=== PATIENT | female | born 1950 | race Caucasian/White ===

== ENCOUNTER → 2017-09-21 | Outpatient (CLI) | payer OTHER, MEDICARE ==
[~2017-09-21] MED LIST: ACTOS15 MG PO; ADULT LOW DOSE81 MG PO; ARIXTRA; ASPIR 8181 MG PO; ASPIRIN325; BENADRYL25 MG; BISACODYL SUPP10 MG; CIPROFLOXACIN500 M3 OR; HUMALOG100 UNIT/1 SUBQ; HYDROCHLOROTHIA25 M1 PO; JARDIANCE25 MG PO; LEVAQUIN 500 M500 M1 PO; LEVEMIR SC; LIPITOR 20 MG T20 M1 PO; LISINOPRIL20 MG PO; LISINOPRIL40 MG PO; MECLIZINE HCL12.5 MG; METAMUCIL283 GM; METFORMIN HCL500 MG PO; MOM; MONISTAT 745 GM VG; NORCO 5-325 TA1 EACH PO; NOVALOG INSULIN SUBQ; NOVOLIN 70100 UNIT/5 SQ; NOVOLOG100 UNIT/1 SUBQ; OMEPRAZOLE40 MG PO; OXYIR5 MG; PERCOCET 5-3251 EACH; PREDNISONE 10 M10 M1 PO; PROMETHAZINE/C118 ML PO; REGLAN 10 MG TA10 MG PO; TOUJEO SOL300 UNIT/1 SUBQ; TRULICITY0.75 MG/0. SUBQ; TRULICITY1.5 MG/0.5 SUBQ; VENTOLIN HFA 1818 GM INH; VITAMIN D1000 UNI1 PO; ZOCOR 20 MG TAB20 M1 PO
[2017-09-22 02:08] LABS: GLYCOHEMOGLOBIN (HGB A1C) 12.9 % (4.8-5.6)
== END ==
LOC: M.LAB 10:17
PROVIDERS: Internal Medicine
DX: I10 Essential (primary) hypertension (principal); E11.65 Type 2 diabetes mellitus with hyperglycemia; E11.8 Type 2 diabetes mellitus with unspecified complications; E78.5 Hyperlipidemia, unspecified; Z79.4 Long term (current) use of insulin

== ENCOUNTER → 2018-01-08 | Outpatient (CLI) | payer OTHER, MEDICARE | LOC: M.RAD 13:36 | DX: R05 Cough (principal) ==

== ENCOUNTER → 2018-01-18 | Outpatient (CLI) | payer OTHER, MEDICARE | LOC: M.CT 07:15 | DX: I51.7 Cardiomegaly (principal); I25.10 Atherosclerotic heart disease of native coronary artery without angina pectoris; I10 Essential (primary) hypertension; R94.5 Abnormal results of liver function studies; J98.11 Atelectasis; M47.894 Other spondylosis, thoracic region; M41.84 Other forms of scoliosis, thoracic region; E11.8 Type 2 diabetes mellitus with unspecified complications; E78.5 Hyperlipidemia, unspecified; Z79.4 Long term (current) use of insulin ==

== ENCOUNTER → 2018-01-20 | Outpatient (CLI) | payer OTHER, MEDICARE ==
[2018-01-20 15:12] LABS: CREATININE 1.1 mg/dL (0.6-1.3)
== END ==
LOC: M.LAB 14:41
PROVIDERS: Internal Medicine
DX: E11.9 Type 2 diabetes mellitus without complications (principal); I10 Essential (primary) hypertension; E78.5 Hyperlipidemia, unspecified

== ENCOUNTER → 2018-03-12 | Outpatient (CLI) | payer OTHER, MEDICARE ==
[2018-03-12 17:08] LABS: ABSOLUTE BASOPHILS 0.1 thou/uL (0.0-0.2); ABSOLUTE EOSINOPHILS 0.2 thou/uL (0.0-0.7); ABSOLUTE LYMPHOCYTES 1.6 thou/uL (0.8-5.3); ABSOLUTE MONOCYTES 0.8 thou/uL (0.0-1.2); BASOPHILS 0.7 %; EOSINOPHILS 1.5 %; HEMATOCRIT 42.2 % (37.0-47.0); HEMOGLOBIN 13.8 gm/dL (12.0-15.0); LYMPHOCYTES 11.1 %; MCH 29.1 pg (26.0-34.0); MCHC 32.8 g/dL (28.0-37.0); MCV 88.7 fL (80.0-100.0); MONOCYTES 5.4 %; MPV 9.9 fl. (7.2-11.1); NUCLEATED RBCS 0 /100WBC; PLATELET COUNT* 191 thou/uL (150-400); POLYS 81.3 %; RBC 4.75 mil/uL (4.20-5.00); RDW-CV 13.6 % (10.5-14.5); WBC 14.7 thou/uL (4.0-11.0)
[2018-03-12 17:21] LABS: ALBUMIN 2.8 g/dL (3.4-5.0); ALKALINE PHOSPHATASE 224 U/L (46-116); ANION GAP 10 mmol/L (7-16); BUN 28 mg/dL (7-18); CALCIUM 9.3 mg/dL (8.5-10.1); CHLORIDE 103 mmol/L (98-107); CHOLESTEROL 182 mg/dL (<200); CO2 26 mmol/L (21-32); CREATININE 1.4 mg/dL (0.6-1.3); DIRECT BILIRUBIN 3.3 mg/dL (<0.1-0.3); GLUCOSE 309 mg/dL (70-99); HDL CHOLESTEROL 11 mg/dL (>40); LDL CHOLESTEROL 121 mg/dL (<100); MAGNESIUM 2.2 mg/dL (1.8-2.4); PHOSPHORUS* 3.1 mg/dL (2.5-4.9); SGOT 166 U/L (15-37); SGPT 192 U/L (30-65); SODIUM 139 mmol/L (136-145); TC:HDL 16.5 Ratio (Not establshd); TOTAL BILIRUBIN 4.4 mg/dL (<0.1-1.0); TOTAL PROTEIN 7.2 g/dL (6.4-8.2); TRIGLYCERIDE 250 mg/dL (<150); VLDL 50 mg/dL (<40)
[2018-03-12 17:27] LABS: SERUM ASSESSMENT Clear
[2018-03-12 18:16] LABS: ESR (SEDRATE) 74 mm/hr (0-30)
[2018-03-12 23:07] LABS: URINE BLOOD TRACE (Negative); URINE CLARITY CLEAR; URINE COLOR YELLOW; URINE GLUCOSE-RANDOM 3+ (Negative); URINE KETONES 1+ (Negative); URINE LEUKOCYTES NEGATIVE (Negative); URINE NITRITE NEGATIVE (Negative); URINE PROTEIN TRACE (Negative); URINE SPECIFIC GRAVITY <= 1.005 (1.005-1.030)
[2018-03-12 23:10] LABS: URINE BILIRUBIN 1+ (Negative)
[2018-03-12 23:11] LABS: ICTOTEST (BILI CONFIRMATORY) Positive (Negative)
[2018-03-13 23:07] LABS: T3 UPTAKE 27 % (24-39)
== END ==
LOC: M.LAB 16:11
PROVIDERS: Internal Medicine
DX: E11.65 Type 2 diabetes mellitus with hyperglycemia (principal); E11.42 Type 2 diabetes mellitus with diabetic polyneuropathy; E11.3213 Type 2 diabetes mellitus with mild nonproliferative diabetic retinopathy with macular edema, bilateral; I10 Essential (primary) hypertension; E78.5 Hyperlipidemia, unspecified; F32.9 Major depressive disorder, single episode, unspecified; R07.9 Chest pain, unspecified; Z79.4 Long term (current) use of insulin; Z79.899 Other long term (current) drug therapy

== ENCOUNTER → 2018-03-15 | Outpatient (CLI) | payer OTHER, MEDICARE ==
[2018-03-15 14:56] LABS: ALBUMIN 2.8 g/dL (3.4-5.0); CALCIUM 9.2 mg/dL (8.5-10.1); CREATININE 0.9 mg/dL (0.6-1.3); POTASSIUM 3.9 mmol/L (3.5-5.1); TOTAL BILIRUBIN 1.5 mg/dL (<0.1-1.0); TOTAL PROTEIN 7.5 g/dL (6.4-8.2)
[2018-03-15 15:33] LABS: PROTIME 9.5 Seconds (9.20-11.50)
[2018-03-15 15:35] LABS: ABSOLUTE BASOPHILS 0.1 thou/uL (0.0-0.2); ABSOLUTE EOSINOPHILS 0.3 thou/uL (0.0-0.7); ABSOLUTE LYMPHOCYTES 3.1 thou/uL (0.8-5.3); ABSOLUTE NEUTROPHILS 7.2 thou/uL (1.6-8.1); BASOPHILS 1.1 %; EOSINOPHILS 2.6 %; HEMATOCRIT 43.5 % (37.0-47.0); HEMOGLOBIN 14.1 gm/dL (12.0-15.0); LYMPHOCYTES 26.4 %; MCH 28.8 pg (26.0-34.0); MCHC 32.5 g/dL (28.0-37.0); MCV 88.5 fL (80.0-100.0); MONOCYTES 8.5 %; MPV 9.8 fl. (7.2-11.1); NUCLEATED RBCS 0 /100WBC; PLATELET COUNT* 239 thou/uL (150-400); POLYS 61.4 %; RBC 4.92 mil/uL (4.20-5.00); RDW-CV 13.5 % (10.5-14.5); WBC 11.7 thou/uL (4.0-11.0)
== END ==
LOC: M.CT 11:00
PROVIDERS: Internal Medicine
DX: K42.9 Umbilical hernia without obstruction or gangrene (principal); K76.0 Fatty (change of) liver, not elsewhere classified; I25.10 Atherosclerotic heart disease of native coronary artery without angina pectoris; J98.11 Atelectasis

== ENCOUNTER → 2018-03-19 | Outpatient (CLI) | payer OTHER, MEDICARE ==
[2018-03-19 15:57] LABS: HEMATOCRIT 43.9 % (37.0-47.0); HEMOGLOBIN 14.1 gm/dL (12.0-15.0); MCH 28.9 pg (26.0-34.0); MCHC 32.1 g/dL (28.0-37.0); MCV 89.8 fL (80.0-100.0); MPV 9.1 fl. (7.2-11.1); NUCLEATED RBCS 0 /100WBC; PLATELET COUNT* 333 thou/uL (150-400); RBC 4.89 mil/uL (4.20-5.00); RDW-CV 13.9 % (10.5-14.5); WBC 11.9 thou/uL (4.0-11.0)
[2018-03-19 16:18] LABS: ABSOLUTE EOSINOPHILS 0.1 thou/uL (0.0-0.7); ABSOLUTE LYMPHOCYTES 3.6 thou/uL (0.8-5.3); ABSOLUTE MONOCYTES 0.5 thou/uL (0.0-1.2); ABSOLUTE NEUTROPHILS 7.7 thou/uL (1.6-8.1); ATYPICAL LYMPHS 2 %
[2018-03-19 16:19] LABS: ALBUMIN 3.1 g/dL (3.4-5.0); DIRECT BILIRUBIN 0.4 mg/dL (<0.1-0.3); PLATELET ESTIMATE ADEQUATE; TOTAL BILIRUBIN 0.9 mg/dL (<0.1-1.0); TOTAL PROTEIN 7.6 g/dL (6.4-8.2)
[2018-03-19 16:56] LABS: ESR (SEDRATE) 50 mm/hr (0-30)
[2018-03-20 06:06] LABS: HEPATITIS B SURFACE AG Negative (Negative)
== END ==
LOC: M.LAB 15:37
PROVIDERS: Internal Medicine
DX: E11.42 Type 2 diabetes mellitus with diabetic polyneuropathy (principal); I10 Essential (primary) hypertension; E88.81 Metabolic syndrome and other insulin resistance; J06.9 Acute upper respiratory infection, unspecified; R17 Unspecified jaundice; R10.9 Unspecified abdominal pain; Z79.4 Long term (current) use of insulin; Z79.899 Other long term (current) drug therapy

== ENCOUNTER → 2018-03-28 | Outpatient (CLI) | payer OTHER, MEDICARE | LOC: M.ULTRA 07:17 → M.MRI 08:30 | DX: N28.1 Cyst of kidney, acquired (principal); K44.9 Diaphragmatic hernia without obstruction or gangrene; R79.89 Other specified abnormal findings of blood chemistry; R17 Unspecified jaundice; E11.9 Type 2 diabetes mellitus without complications; Z96.651 Presence of right artificial knee joint; Z88.6 Allergy status to analgesic agent ==

== ENCOUNTER 2018-04-05 11:31 | Observation (INO) | payer OTHER, MEDICARE ==
[~2018-04-05] VITALS: Ht 157.5 cm; Wt 93.4 kg
--- NOTE | ~2018-04-05 | H ---
[address] [address] HISTORY AND PHYSICAL Name: MIA DE LEON Room: [address] Avelina Shaw#: [id number] Admission: 04/05/18 Attend Phys: Keven Gordon DO Discharge: 04/06/18 Date of : 52 Report #: [id number] THIS REPORT FOR: //name// Please refer to the History and Physical performed in the physician's office. By: 1342Medical Records Staff OMEGA /ZENIA
[~2018-04-05 11:31] MED LIST changes: -REGLAN 10 MG TA10 MG PO
[2018-04-05 13:21] LABS: HEMATOCRIT 41.3 % (37.0-47.0); HEMOGLOBIN 13.5 gm/dL (12.0-15.0); MCH 29.1 pg (26.0-34.0); MCHC 32.8 g/dL (28.0-37.0); MCV 88.7 fL (80.0-100.0); MPV 9.2 fl. (7.2-11.1); RBC 4.65 mil/uL (4.20-5.00); RDW-CV 13.5 % (10.5-14.5); WBC 10.1 thou/uL (4.0-11.0)
[2018-04-05 13:29] LABS: CALCIUM 8.4 mg/dL (8.5-10.1)
[2018-04-05 13:31] LABS: APTT 27.4 Seconds (25.0-31.3)
[2018-04-05 13:35] LABS: ALBUMIN 3.2 g/dL (3.4-5.0); TOTAL BILIRUBIN 0.5 mg/dL (<0.1-1.0); TOTAL PROTEIN 7.1 g/dL (6.4-8.2)
--- NOTE | 2018-04-05 15:19 | EKG ---
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 04/05/18 1518 1210 1210 Gallito Bentley MD, [facility] /EPI
[2018-04-05 15:54] VITALS: BP 192/78
[2018-04-05 20:30] VITALS: BP 169/74
[2018-04-06 04:24] VITALS: BP 143/65
[2018-04-06 04:33] LABS: HEMATOCRIT 40.4 % (37.0-47.0); MCH 28.6 pg (26.0-34.0); MCHC 32.2 g/dL (28.0-37.0); MCV 89.1 fL (80.0-100.0); MPV 9.4 fl. (7.2-11.1); NUCLEATED RBCS 0 /100WBC; PLATELET COUNT* 223 thou/uL (150-400); RBC 4.54 mil/uL (4.20-5.00); RDW-CV 13.4 % (10.5-14.5); WBC 15.5 thou/uL (4.0-11.0)
[2018-04-06 04:42] LABS: CALCIUM 7.9 mg/dL (8.5-10.1); CREATININE 1.2 mg/dL (0.6-1.3); POTASSIUM 4.9 mmol/L (3.5-5.1)
[2018-04-06 07:24] LABS: ABSOLUTE LYMPHOCYTES 1.9 thou/uL (0.8-5.3); ABSOLUTE MONOCYTES 0.6 thou/uL (0.0-1.2); METAMYELOCYTES 1 %; PLATELET ESTIMATE ADEQUATE
[2018-04-06 07:50] VITALS: BP 130/53
[2018-04-06] MEDS ORDERED: REGLAN 10 MG TA10 MG PO (14:17)
[2018-04-06 14:42] VITALS: BP 130/53
== END 2018-04-06 15:15 | disposition home or self-care (01) ==
LOC: M.SUR 11:31 → M.ORTHSURG 15:22 → M.TBA 15:22 → M.ORTHSURG 15:34
PROVIDERS: ADMIT Internal Medicine Gastroenterology
DX: K80.50 Calculus of bile duct without cholangitis or cholecystitis without obstruction (principal); I10 Essential (primary) hypertension; R10.13 Epigastric pain; E11.65 Type 2 diabetes mellitus with hyperglycemia; K21.0 Gastro-esophageal reflux disease with esophagitis; E78.5 Hyperlipidemia, unspecified; R93.2 Abnormal findings on diagnostic imaging of liver and biliary tract; R74.8 Abnormal levels of other serum enzymes; Z98.890 Other specified postprocedural states; Z79.4 Long term (current) use of insulin; Z90.710 Acquired absence of both cervix and uterus

== ENCOUNTER → 2018-05-02 | Outpatient (CLI) | payer OTHER, MEDICARE ==
[~2018-05-02] MED LIST changes: +REGLAN 10 MG TA10 MG PO
[2018-05-02 07:54] LABS: ABSOLUTE BASOPHILS 0.1 thou/uL (0.0-0.2); ABSOLUTE EOSINOPHILS 0.3 thou/uL (0.0-0.7); ABSOLUTE LYMPHOCYTES 2.8 thou/uL (0.8-5.3); ABSOLUTE MONOCYTES 0.9 thou/uL (0.0-1.2); BASOPHILS 1.3 %; EOSINOPHILS 2.7 %; HEMATOCRIT 39.9 % (37.0-47.0); HEMOGLOBIN 13.2 gm/dL (12.0-15.0); LYMPHOCYTES 27.7 %; MCHC 32.9 g/dL (28.0-37.0); MONOCYTES 8.9 %; MPV 9.5 fl. (7.2-11.1); NUCLEATED RBCS 0 /100WBC; PLATELET COUNT* 258 thou/uL (150-400); POLYS 59.4 %; RBC 4.54 mil/uL (4.20-5.00); RDW-CV 13.7 % (10.5-14.5); WBC 10.1 thou/uL (4.0-11.0)
[2018-05-02 08:05] LABS: ALBUMIN 3.2 g/dL (3.4-5.0); POTASSIUM 4.5 mmol/L (3.5-5.1); TOTAL BILIRUBIN 0.5 mg/dL (<0.1-1.0); TOTAL PROTEIN 7.3 g/dL (6.4-8.2)
== END ==
LOC: M.LAB 07:18
PROVIDERS: Internal Medicine Gastroenterology
DX: K20.9 Esophagitis, unspecified (principal); K80.50 Calculus of bile duct without cholangitis or cholecystitis without obstruction; E11.9 Type 2 diabetes mellitus without complications

== ENCOUNTER → 2018-09-25 | Outpatient (CLI) | payer OTHER, MEDICARE ==
[2018-09-25 07:25] LABS: ABSOLUTE BASOPHILS 0.1 thou/uL (0.0-0.2); ABSOLUTE EOSINOPHILS 0.3 thou/uL (0.0-0.7); ABSOLUTE LYMPHOCYTES 3.2 thou/uL (0.8-5.3); ABSOLUTE MONOCYTES 0.9 thou/uL (0.0-1.2); ABSOLUTE NEUTROPHILS 8.3 thou/uL (1.6-8.1); BASOPHILS 1.1 %; EOSINOPHILS 2.7 %; HEMATOCRIT 42.9 % (37.0-47.0); HEMOGLOBIN 13.9 gm/dL (12.0-15.0); MCH 28.6 pg (26.0-34.0); MCHC 32.5 g/dL (28.0-37.0); MCV 88.2 fL (80.0-100.0); MONOCYTES 6.9 %; NUCLEATED RBCS 0 /100WBC; PLATELET COUNT* 247 thou/uL (150-400); POLYS 64.3 %; RBC 4.86 mil/uL (4.20-5.00); RDW-CV 13.9 % (10.5-14.5); WBC 12.8 thou/uL (4.0-11.0)
[2018-09-25 07:35] LABS: ALBUMIN 3.4 g/dL (3.4-5.0); ALKALINE PHOSPHATASE 127 U/L (46-116); ANION GAP 8 mmol/L (7-16); BUN 29 mg/dL (7-18); CHLORIDE 101 mmol/L (98-107); CHOLESTEROL 239 mg/dL (<200); CO2 28 mmol/L (21-32); CREATININE 1.4 mg/dL (0.6-1.3); DIRECT BILIRUBIN 0.1 mg/dL (<0.1-0.3); GLUCOSE 297 mg/dL (70-99); HDL CHOLESTEROL 42 mg/dL (>40); LDL CHOLESTEROL 141 mg/dL (<100); POTASSIUM 4.2 mmol/L (3.5-5.1); SGOT 15 U/L (15-37); SGPT 18 U/L (30-65); SODIUM 137 mmol/L (136-145); TC:HDL 5.7 Ratio (Not establshd); TOTAL BILIRUBIN 0.5 mg/dL (<0.1-1.0); TOTAL PROTEIN 7.5 g/dL (6.4-8.2); TRIGLYCERIDE 284 mg/dL (<150); VLDL 57 mg/dL (<40)
[2018-09-25 07:43] LABS: SERUM ASSESSMENT Clear
[2018-09-25 17:08] LABS: GLYCOHEMOGLOBIN (HGB A1C) 10.1 % (4.8-5.6)
== END ==
LOC: M.LAB 07:05
PROVIDERS: Registered Nurse Diabetes Educator
DX: E11.3213 Type 2 diabetes mellitus with mild nonproliferative diabetic retinopathy with macular edema, bilateral (principal); I10 Essential (primary) hypertension; R53.83 Other fatigue; R06.83 Snoring; Z79.4 Long term (current) use of insulin; Z68.38 Body mass index [BMI] 38.0-38.9, adult

== ENCOUNTER → 2018-10-29 | Outpatient (CLI) | payer OTHER, MEDICARE | LOC: M.LAB 07:14 | DX: E11.42 Type 2 diabetes mellitus with diabetic polyneuropathy (principal); Z79.4 Long term (current) use of insulin ==

== ENCOUNTER → 2018-11-09 | Outpatient (CLI) | payer OTHER, MEDICARE | LOC: M.RAD 12:44 | DX: R05 Cough (principal); R50.9 Fever, unspecified; Z88.8 Allergy status to other drugs, medicaments and biological substances; Z88.5 Allergy status to narcotic agent; Z90.49 Acquired absence of other specified parts of digestive tract ==

== ENCOUNTER → 2018-11-30 | Outpatient (CLI) | payer OTHER, MEDICARE ==
--- NOTE | 2018-12-03 20:50 | SLEEP ---
[address] [address] SLEEP STUDY REPORT Name: MIA DE LEON Room: [facility].#: [id number] Admission: 11/30/18 Attend Phys: Marilyn Rojas Discharge: Date of : 52 Report #: [id number] THIS REPORT FOR: //name// CC: Tigre Rojas This study has been reviewed in its entirety by a board certified sleep specialist DATE OF SERVICE: 11/30/2018 ATTENDING PERSON: Marilyn Rojas NP The patient is 68 years old who weighs 211 pounds with a BMI of 41.2. The patient's Baxter score was 14. The patient underwent split night study performed at [facility]. During the night study, the patient spent 473 minutes in bed and slept for 184 minutes with a low sleep efficiency of 39%. Sleep latency was 12.6 minutes with a REM latency of 446 minutes. Overall, sleep architecture showed normal stage 1 and stage 2 sleep, normal N3 and slightly reduced REM sleep. During the initial diagnostic portion of the study, the patient slept for 93 minutes. During that time, the patient had 14 obstructive apneas, no mixed apneas and 9 central apneas. The patient also had 25 hypopneas. The patient's apnea hypopnea index was 30.8 per hour with a REM index, which was absent due to lack of REM sleep during the diagnostic portion. Supine index 30 per hour. EKG monitoring revealed an average heart rate of 67 beats per minute. No sustained arrhythmias observed. PLMs were seen at index of 52 per hour and 9.6 per hour caused EEG arousals. Nocturnal oximetry study revealed an average oxygen saturation of 94%, the lowest of 81%. 8.5 minutes were spent in oxygen saturation less than 89%. The patient met the criteria for CPAP initiation. It was started at 5 cm water and titrated up to 9 cm water; however, there were few central apneas. As a result, the patient was switched to BiPAP and had a final BiPAP pressure of 15/11. The patient slept for 64 minutes. The patient had supine as well as REM sleep. The patient's AHI was 1.9 per hour and oxygen saturation remained above 90%. IMPRESSION: [place] [address] SLEEP STUDY REPORT Name: MIA DE LEON [id number] Admission: 11/30/18 Attend Phys: Marilyn WATSON Rojas Discharge: Date of : 52 Report #: [id number] 1. Severe sleep apnea hypopnea syndrome at an AHI of 30.8 per hour. 2. Nocturnal hypoxia secondary to obstructive sleep apnea, but resolved with BiPAP. 3. Severe periodic limb movements. RECOMMENDATIONS: 1. BiPAP at a pressure of 15/11 completely eliminated the patient's sleep apnea and should be used on a nightly basis. 2. Follow up in 4-6 weeks to assess compliance with BiPAP and to document clinical improvement. 3. Weight loss is advised. 4. Avoid BOND MANAGER depressants. 5. Cautioned regarding driving until symptoms of sleep apnea resolves with the use of BiPAP. 6. The patient should also be further evaluated for symptoms of restless legs during the day. <ELECTRONICALLY SIGNED> By: Bin Garrett MD 12/03/182049 1501 1835Awillits Terrence Garrett MD /nt
== END ==
LOC: M.SLEEPLAB 11-03 20:00
DX: G47.33 Obstructive sleep apnea (adult) (pediatric) (principal); G47.34 Idiopathic sleep related nonobstructive alveolar hypoventilation; G47.61 Periodic limb movement disorder; E11.3213 Type 2 diabetes mellitus with mild nonproliferative diabetic retinopathy with macular edema, bilateral; R06.83 Snoring; R53.83 Other fatigue; Z79.4 Long term (current) use of insulin; Z88.8 Allergy status to other drugs, medicaments and biological substances; Z68.41 Body mass index [BMI] 40.0-44.9, adult

== ENCOUNTER → 2019-02-15 | Outpatient (CLI) | payer OTHER, MEDICARE ==
[2019-02-15 07:45] LABS: ABSOLUTE BASOPHILS 0.1 thou/uL (0.0-0.2); ABSOLUTE EOSINOPHILS 0.3 thou/uL (0.0-0.7); ABSOLUTE LYMPHOCYTES 3.2 thou/uL (0.8-5.3); ABSOLUTE MONOCYTES 0.9 thou/uL (0.0-1.2); ABSOLUTE NEUTROPHILS 5.8 thou/uL (1.6-8.1); BASOPHILS 0.9 %; EOSINOPHILS 2.8 %; HEMATOCRIT 41.5 % (37.0-47.0); HEMOGLOBIN 13.8 gm/dL (12.0-15.0); LYMPHOCYTES 31.1 %; MCH 29.5 pg (26.0-34.0); MCHC 33.2 g/dL (28.0-37.0); MCV 88.7 fL (80.0-100.0); MONOCYTES 8.5 %; MPV 9.2 fl. (7.2-11.1); NUCLEATED RBCS 0 /100WBC; PLATELET COUNT* 238 thou/uL (150-400); POLYS 56.7 %; RBC 4.68 mil/uL (4.20-5.00); RDW-CV 13.7 % (10.5-14.5); WBC 10.3 thou/uL (4.0-11.0)
[2019-02-15 08:03] LABS: ALBUMIN 3.3 g/dL (3.4-5.0); CALCIUM 9.2 mg/dL (8.5-10.1); DIRECT BILIRUBIN 0.1 mg/dL (<0.1-0.3); POTASSIUM 4.1 mmol/L (3.5-5.1); TOTAL BILIRUBIN 0.6 mg/dL (<0.1-1.0); TOTAL PROTEIN 7.2 g/dL (6.4-8.2)
[2019-02-16 09:07] LABS: GLYCOHEMOGLOBIN (HGB A1C) 9.3 % (4.8-5.6)
== END ==
LOC: M.LAB 07:17
PROVIDERS: Registered Nurse Diabetes Educator
DX: E11.42 Type 2 diabetes mellitus with diabetic polyneuropathy (principal); I10 Essential (primary) hypertension; Z79.899 Other long term (current) drug therapy; Z68.41 Body mass index [BMI] 40.0-44.9, adult

== ENCOUNTER → 2019-04-17 | Outpatient (CLI) | payer OTHER, MEDICARE | LOC: M.RAD 15:46 | DX: M47.816 Spondylosis without myelopathy or radiculopathy, lumbar region (principal); M12.88 Other specific arthropathies, not elsewhere classified, other specified site ==

== ENCOUNTER 2019-04-21 00:40 | Emergency (ER) | payer OTHER, MEDICARE ==
[~2019-04-21] VITALS: Ht 157.5 cm; Wt 99.8 kg
[2019-04-21 00:45] VITALS: BP 122/92
== END 2019-04-21 01:49 | disposition home or self-care (01) ==
LOC: M.ERS 00:40
DX: S80.01XA Contusion of right knee, initial encounter (principal); E11.9 Type 2 diabetes mellitus without complications; Z90.710 Acquired absence of both cervix and uterus; Z96.653 Presence of artificial knee joint, bilateral; Z79.4 Long term (current) use of insulin; Z88.5 Allergy status to narcotic agent; W01.0XXA Fall on same level from slipping, tripping and stumbling without subsequent striking against object, initial encounter; Y93.89 Activity, other specified; Y92.89 Other specified places as the place of occurrence of the external cause; Y99.8 Other external cause status

== ENCOUNTER → 2019-05-06 | Outpatient (CLI) | payer OTHER, MEDICARE ==
[2019-05-06 17:11] LABS: CALCIUM 9.3 mg/dL (8.5-10.1); POTASSIUM 4.4 mmol/L (3.5-5.1)
== END ==
LOC: M.LAB 16:41
PROVIDERS: Internal Medicine Cardiovascular Disease
DX: I11.0 Hypertensive heart disease with heart failure (principal); I50.33 Acute on chronic diastolic (congestive) heart failure

== ENCOUNTER 2019-05-10 21:22 | Inpatient (IN) | payer OTHER, MEDICARE ==
[~2019-05-10] VITALS: Ht 157.5 cm; Wt 99.3 kg
[2019-05-10 21:37] VITALS: BP 171/66
[2019-05-10 21:39] LABS: ABSOLUTE BASOPHILS 0.1 thou/uL (0.0-0.2); ABSOLUTE EOSINOPHILS 0.3 thou/uL (0.0-0.7); ABSOLUTE LYMPHOCYTES 3.4 thou/uL (0.8-5.3); ABSOLUTE MONOCYTES 1.2 thou/uL (0.0-1.2); ABSOLUTE NEUTROPHILS 9.3 thou/uL (1.6-8.1); BASOPHILS 0.9 %; EOSINOPHILS 2.2 %; HEMATOCRIT 42.3 % (37.0-47.0); LYMPHOCYTES 23.8 %; MCHC 33.1 g/dL (28.0-37.0); MCV 87.5 fL (80.0-100.0); MONOCYTES 8.3 %; MPV 8.9 fl. (7.2-11.1); NUCLEATED RBCS 0 /100WBC; PLATELET COUNT* 266 thou/uL (150-400); POLYS 64.8 %; RBC 4.83 mil/uL (4.20-5.00); RDW-CV 13.6 % (10.5-14.5); WBC 14.4 thou/uL (4.0-11.0)
[2019-05-10] MEDS ORDERED: CRESTOR20 MG PO (21:43)
[2019-05-10] MEDS ORDERED: COZAAR100 MG PO (21:44)
[2019-05-10] MEDS ORDERED: COREG6.25 MG PO (21:45)
[2019-05-10] MEDS ORDERED: MAXZIDE-25 MG1 EACH PO (21:45)
[2019-05-10 21:47] LABS: CALCIUM 9.1 mg/dL (8.5-10.1); CREATININE 1.4 mg/dL (0.6-1.3); POTASSIUM 3.6 mmol/L (3.5-5.1)
[2019-05-10 21:52] LABS: ALBUMIN 3.5 g/dL (3.4-5.0); TOTAL BILIRUBIN 0.7 mg/dL (<0.1-1.0); TOTAL PROTEIN 7.5 g/dL (6.4-8.2)
[2019-05-10 21:56] LABS: APTT 29.1 Seconds (25.0-31.3); PROTIME 9.9 Seconds (9.20-11.50)
[2019-05-11] VITALS (7 sets, daily range): BP systolic 117–158; BP diastolic 52–62
[2019-05-11 00:49] LABS: URINE BILIRUBIN NEGATIVE (Negative); URINE BLOOD TRACE (Negative); URINE CLARITY CLEAR; URINE COLOR YELLOW; URINE GLUCOSE-RANDOM 3+ (Negative); URINE KETONES NEGATIVE (Negative); URINE LEUKOCYTES-REFLEX NEGATIVE (Negative); URINE NITRITE-REFLEX NEGATIVE (Negative); URINE PROTEIN 1+ (Negative); URINE SPECIFIC GRAVITY 1.015 (1.005-1.030); URINE UROBILINOGEN 0.2 E.U./dl (0.2-1.0)
--- NOTE | 2019-05-11 01:56 | NUR ---
PT ADMITTED TO ROOM 2024 AT 0045 FOR ALTERED MENTAL STATUS / HYPOGLYCEMIA. PT ALERT AND ORIENTED X 4. PT GIVEN INSTRUCTION AND DEMONSTRATION ON BED CONTROLS, CALL LIGHT AND ORIENTED TO ROOM. PT INSTRUCTED TO CALL NURSE BEFORE GETTING UP. PT VERBALIZES UNDERSTANDING. CALL LIGHT IN REACH, PT DEMONSTRATES PROPER USE.
[2019-05-11 10:34] LABS: ABSOLUTE BASOPHILS 0.1 thou/uL (0.0-0.2); ABSOLUTE EOSINOPHILS 0.2 thou/uL (0.0-0.7); ABSOLUTE LYMPHOCYTES 2.3 thou/uL (0.8-5.3); ABSOLUTE MONOCYTES 0.7 thou/uL (0.0-1.2); BASOPHILS 0.7 %; EOSINOPHILS 1.8 %; HEMATOCRIT 40.1 % (37.0-47.0); HEMOGLOBIN 13.5 gm/dL (12.0-15.0); LYMPHOCYTES 22.7 %; MCH 29.3 pg (26.0-34.0); MCHC 33.6 g/dL (28.0-37.0); MCV 87.4 fL (80.0-100.0); MONOCYTES 7.3 %; MPV 9.2 fl. (7.2-11.1); NUCLEATED RBCS 0 /100WBC; PLATELET COUNT* 258 thou/uL (150-400); POLYS 67.5 %; RBC 4.59 mil/uL (4.20-5.00); RDW-CV 13.7 % (10.5-14.5); WBC 10.3 thou/uL (4.0-11.0)
[2019-05-11 10:45] LABS: CALCIUM 8.5 mg/dL (8.5-10.1); CREATININE 1.2 mg/dL (0.6-1.3); POTASSIUM 4.2 mmol/L (3.5-5.1)
--- NOTE | 2019-05-11 12:54 | EKG ---
[place] [address] ELECTROCARDIOGRAM REPORT Name: MIA DE LEON Room: [address] ADM IN M.R.#: [id number] Admission: 05/11/19 Attend Phys: Alana Almanzar Discharge: Date of : 52 Report #: [id number] THIS REPORT FOR: //name// [facility] ED Test Date: 2019-05-10 Test Time: 22:15:22 Pat Name: MIA DE LEON Department: Room: 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
--- NOTE | 2019-05-11 14:34 | NUR ---
ASSUMED PT CARE REPORT RECEIVED FROM NURSE. 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 ON RA. LEFT AC NORMAL SALINE INFUSING AT 100 CC PER HOUR. ACCUCHECK EVERY 2 HOURS. NO HYPOGLYCEMIA NOTED. DISCHARGE PLANNING FOR PATIENT PENDING.
[2019-05-11] MEDS ORDERED: ASPIRIN81 M2 PO (14:58)
[2019-05-11] MEDS ORDERED: TOUJEO SOL300 UNIT/1 SUBQ (14:58)
[2019-05-11] MEDS ORDERED: LISINOPRIL20 MG PO (15:18)
--- NOTE | 2019-05-11 15:34 | NUR ---
PATIENT BLOOD SUGAR CHECKED AT 1530 BEFORE DISCHARGE. ACCUCHECK 58. SR MADE AWARE. DISCHARGE HELD TO MONITOR PT BLOOD SUGAR CLOSELY.
--- NOTE | 2019-05-11 19:42 | NUR ---
PT [facility] IS O
[2019-05-12] VITALS: BP 142/63
[2019-05-12 02:06] LABS: GLYCOHEMOGLOBIN (HGB A1C) 8.1 % (4.8-5.6)
[2019-05-12 04:00] VITALS: BP 117/52
[2019-05-12 05:32] LABS: CALCIUM 8.3 mg/dL (8.5-10.1); CREATININE 1.1 mg/dL (0.6-1.3); PHOSPHORUS* 3.9 mg/dL (2.5-4.9); POTASSIUM 4.2 mmol/L (3.5-5.1)
[2019-05-12 06:11] LABS: CHOLESTEROL 111 mg/dL (<200); HDL CHOLESTEROL 42 mg/dL (>40); LDL CHOLESTEROL 39 mg/dL (<100); SERUM ASSESSMENT CLEAR; TC:HDL 2.6 Ratio (Not establshd); TRIGLYCERIDE 152 mg/dL (<150); VLDL 30 mg/dL (<40)
--- NOTE | 2019-05-12 07:53 | NUR ---
PT IS ABLE TO COMMUNICATE HER NEEDS TO STAFF EFFEECTIVELY. 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 ECHO, AND SEVERAL MRI/A SCANS ORDERED; POSSIBLE DISCHARGE AFTER SCANS, ETC. ARE COMPLETED.
[2019-05-12 08:00] VITALS: BP 147/58
[2019-05-12 11:27] VITALS: BP 133/53
[2019-05-12 15:25] VITALS: BP 166/62
--- NOTE | 2019-05-12 17:33 | NUR ---
ASSUMED PT CARE REPORT RECEIVED FROM NURSE. PT IS AOX4, ON RA. SINUS DIANA ON GLOST TILE SHADER. NO COMPLAINT. IV FLUID INFUSING AT 50 CC PER HOUR. IV FLUID WAS THEN STOPPED AFTER HOSPITALIST SAW PT. KJ ROA.HS, BETTER BLOOD SUGAR CONTROL ON LOW DOSE SLIDING SCALE. HEART RATE REMAINS INTHE 50S. DROPPED IN THE 30S ONCE FOR A SHORT MOMENT DURING THIS SHIFT. MRI/MRA OF HEAD PENDING. PT AMBULATES IN HALLWAY ACCOMPANIED BY THIS NURSE X1. CALL LIGHT AT REACH. WILL CONTINUE TO MONITOR PT.
[2019-05-12 20:00] VITALS: BP 161/50
[2019-05-13] VITALS: BP 127/47
--- NOTE | 2019-05-13 00:44 | NUR ---
PT A+OX4. DENIES ANY PAIN OR DISCOMFORT. TRACING SINUS DIANA ON MONITOR. CALL LIGHT IN REACH. HOURLY ROUNDING FOR SAFETY.
[2019-05-13 04:00] VITALS: BP 126/50
[2019-05-13 05:02] LABS: CALCIUM 8.5 mg/dL (8.5-10.1); POTASSIUM 3.8 mmol/L (3.5-5.1)
[2019-05-13 08:00] VITALS: BP 155/53
--- NOTE | 2019-05-13 10:18 | NUR ---
Pt out of room at MRI, will f/u later
[2019-05-13] MEDS ORDERED: CARVEDILOL3.125 MG PO (11:45)
[2019-05-13] MEDS ORDERED: HUMALOG100 UNIT/1 SUBQ (11:45)
--- NOTE | 2019-05-13 11:56 | NUR ---
Pt is A&O. Reside at home alone. Independent, continues to work. Pt has a cpap. No hx of HH or SNF. Goal is home, anticipate dc today pending MRI. No needs.
[2019-05-13 13:03] VITALS: BP 149/54
[2019-05-13 13:18] VITALS: BP 149/54
--- NOTE | 2019-05-13 13:37 | NUR ---
PT PREPARING FOR DISCHARGE TO HOME. PT REPORTS HAS SUPPORTIVE SON AND DTR. PT DEMO UP AD [facility] INDEP AND STABLE TRANSFERS AND GAIT W/O DME SUPPORT. PT VOICES NO CONCERNS REGARDING DISCHARGE BACK TO HOME. WILL DISCHARGE PT ORDERS PER PT REQUEST.
--- NOTE | 2019-05-13 14:38 | NUR ---
PT. DISCHARGED PRIOR TO O.T. EVAL.
--- NOTE | 2019-05-13 14:53 | NUR ---
ASSUMED PT CARE REPORT RECIEVED FROM NURSE. PT IS AOX4, TRACING BRADYCARDIA ON PRESCRIPTIONIST. ON RA. ACCUCHECK AC/HS. NO COMPLAINT. MRI/MRA WAS DONE THIS AM. PT DISCHARGED TO HOME SELF CARE ACCOMPANIED BY RELATIVE AND VOLUNTEER ON WHEELCHAIR. DISCHARGE INSTRUCTIONS GIVEN, DISCHARGE EDUCATION GIVEN TO PT.
== END 2019-05-13 14:00 | disposition home or self-care (01) | DRG 637 ==
LOC: M.ERS 21:22 → M.2W 05-11 00:01 → M.TBA-ER 05-11 00:01 → M.2W 05-11 00:21
PROVIDERS: Family Medicine; Personal Emergency Response Attendant; ADMIT Internal Medicine
DX: E11.649 Type 2 diabetes mellitus with hypoglycemia without coma (principal); G93.41 Metabolic encephalopathy; I50.32 Chronic diastolic (congestive) heart failure; I13.0 Hypertensive heart and chronic kidney disease with heart failure and stage 1 through stage 4 chronic kidney disease, or unspecified chronic kidney disease; G45.9 Transient cerebral ischemic attack, unspecified; E11.36 Type 2 diabetes mellitus with diabetic cataract; E11.43 Type 2 diabetes mellitus with diabetic autonomic (poly)neuropathy; K31.84 Gastroparesis; Z96.659 Presence of unspecified artificial knee joint; E78.5 Hyperlipidemia, unspecified; N18.3 Chronic kidney disease, stage 3 (moderate); E11.22 Type 2 diabetes mellitus with diabetic chronic kidney disease; R00.1 Bradycardia, unspecified; R47.1 Dysarthria and anarthria; Z90.710 Acquired absence of both cervix and uterus; Z98.42 Cataract extraction status, left eye; Z98.41 Cataract extraction status, right eye; Z79.899 Other long term (current) drug therapy; Z79.84 Long term (current) use of oral hypoglycemic drugs; Z79.4 Long term (current) use of insulin; Z88.6 Allergy status to analgesic agent

== ENCOUNTER → 2019-05-24 | Outpatient (CLI) | payer OTHER, MEDICARE ==
[~2019-05-24] MED LIST changes: +ASPIRIN81 M2 PO; +CARVEDILOL3.125 MG PO; +COREG6.25 MG PO; +COZAAR100 MG PO; +CRESTOR20 MG PO; +MAXZIDE-25 MG1 EACH PO
[2019-05-24 10:40] LABS: ABSOLUTE BASOPHILS 0.1 thou/uL (0.0-0.2); ABSOLUTE EOSINOPHILS 0.3 thou/uL (0.0-0.7); ABSOLUTE LYMPHOCYTES 2.5 thou/uL (0.8-5.3); ABSOLUTE MONOCYTES 0.8 thou/uL (0.0-1.2); ABSOLUTE NEUTROPHILS 7.2 thou/uL (1.6-8.1); BASOPHILS 1.1 %; EOSINOPHILS 2.6 %; HEMATOCRIT 41.4 % (37.0-47.0); HEMOGLOBIN 13.7 gm/dL (12.0-15.0); MCH 29.4 pg (26.0-34.0); MCHC 33.2 g/dL (28.0-37.0); MCV 88.5 fL (80.0-100.0); MONOCYTES 7.4 %; NUCLEATED RBCS 0 /100WBC; PLATELET COUNT* 220 thou/uL (150-400); POLYS 65.9 %; RBC 4.68 mil/uL (4.20-5.00); RDW-CV 13.7 % (10.5-14.5); WBC 10.9 thou/uL (4.0-11.0)
[2019-05-24 11:01] LABS: CALCIUM 9.2 mg/dL (8.5-10.1); CREATININE 1.6 mg/dL (0.6-1.3); POTASSIUM 4.5 mmol/L (3.5-5.1)
[2019-05-25 02:06] LABS: GLYCOHEMOGLOBIN (HGB A1C) 8.6 % (4.8-5.6)
== END ==
LOC: M.LAB 10:14
PROVIDERS: Internal Medicine Cardiovascular Disease
DX: Z12.31 Encounter for screening mammogram for malignant neoplasm of breast (principal); E11.42 Type 2 diabetes mellitus with diabetic polyneuropathy; I11.0 Hypertensive heart disease with heart failure; I50.33 Acute on chronic diastolic (congestive) heart failure; Z79.4 Long term (current) use of insulin; Z79.899 Other long term (current) drug therapy

== ENCOUNTER → 2019-06-28 | Outpatient (CLI) | payer OTHER, MEDICARE ==
[2019-06-28 17:48] LABS: CALCIUM 9.1 mg/dL (8.5-10.1); CREATININE 1.4 mg/dL (0.6-1.3)
== END ==
LOC: M.LAB 17:25
PROVIDERS: Internal Medicine Cardiovascular Disease
DX: I11.0 Hypertensive heart disease with heart failure (principal); I50.33 Acute on chronic diastolic (congestive) heart failure

== ENCOUNTER → 2019-09-23 | Outpatient (CLI) | payer OTHER, MEDICARE ==
[2019-09-23 07:27] LABS: ABSOLUTE BASOPHILS 0.2 thou/uL (0.0-0.2); ABSOLUTE EOSINOPHILS 0.4 thou/uL (0.0-0.7); ABSOLUTE MONOCYTES 0.9 thou/uL (0.0-1.2); ABSOLUTE NEUTROPHILS 8.1 thou/uL (1.6-8.1); BASOPHILS 1.1 %; EOSINOPHILS 2.6 %; HEMATOCRIT 39.8 % (37.0-47.0); HEMOGLOBIN 13.2 gm/dL (12.0-15.0); LYMPHOCYTES 29.6 %; MCH 29.7 pg (26.0-34.0); MCHC 33.2 g/dL (28.0-37.0); MCV 89.5 fL (80.0-100.0); MONOCYTES 6.4 %; MPV 9.4 fl. (7.2-11.1); NUCLEATED RBCS 0 /100WBC; PLATELET COUNT* 227 thou/uL (150-400); POLYS 60.3 %; RBC 4.44 mil/uL (4.20-5.00); WBC 13.4 thou/uL (4.0-11.0)
[2019-09-23 07:44] LABS: ALBUMIN 3.3 g/dL (3.4-5.0); ALKALINE PHOSPHATASE 100 U/L (46-116); ANION GAP 8 mmol/L (7-16); BUN 55 mg/dL (7-18); CHLORIDE 100 mmol/L (98-107); CHOLESTEROL 138 mg/dL (<200); CO2 30 mmol/L (21-32); CREATININE 1.4 mg/dL (0.6-1.3); DIRECT BILIRUBIN 0.1 mg/dL (<0.1-0.3); GLUCOSE 227 mg/dL (70-99); HDL CHOLESTEROL 40 mg/dL (>40); LDL CHOLESTEROL 54 mg/dL (<100); NT-PRO BRAIN NAT PEPTIDE 301 pg/mL (<300); POTASSIUM 4.3 mmol/L (3.5-5.1); SGOT 18 U/L (15-37); SGPT 19 U/L (30-65); SODIUM 138 mmol/L (136-145); TC:HDL 3.5 Ratio (Not establshd); TOTAL BILIRUBIN 0.5 mg/dL (<0.1-1.0); TOTAL PROTEIN 7.5 g/dL (6.4-8.2); TRIGLYCERIDE 221 mg/dL (<150); VLDL 44 mg/dL (<40)
[2019-09-23 07:45] LABS: SERUM ASSESSMENT Clear
[2019-09-24 02:06] LABS: GLYCOHEMOGLOBIN (HGB A1C) 12.3 % (4.8-5.6)
== END ==
LOC: M.LAB 02:07
PROVIDERS: Registered Nurse Diabetes Educator
DX: E11.29 Type 2 diabetes mellitus with other diabetic kidney complication (principal); R80.9 Proteinuria, unspecified; E78.5 Hyperlipidemia, unspecified; I50.32 Chronic diastolic (congestive) heart failure; E55.9 Vitamin D deficiency, unspecified; Z79.4 Long term (current) use of insulin; Z79.899 Other long term (current) drug therapy

== ENCOUNTER → 2019-09-26 | Outpatient (CLI) | payer OTHER, MEDICARE | LOC: M.ULTRA 09:02 | DX: K42.9 Umbilical hernia without obstruction or gangrene (principal); K76.0 Fatty (change of) liver, not elsewhere classified; Z90.49 Acquired absence of other specified parts of digestive tract ==

== ENCOUNTER → 2019-12-13 | Outpatient (CLI) | payer OTHER, MEDICARE | LOC: M.RAD 09:30 | DX: R06.02 Shortness of breath (principal); R05 Cough ==

== ENCOUNTER → 2020-02-04 | Outpatient (CLI) | payer OTHER, MEDICARE ==
[2020-02-04 12:55] LABS: ABSOLUTE BASOPHILS 0.1 thou/uL (0.0-0.2); ABSOLUTE EOSINOPHILS 0.3 thou/uL (0.0-0.7); ABSOLUTE NEUTROPHILS 9.1 thou/uL (1.6-8.1); BASOPHILS 0.8 %; EOSINOPHILS 1.9 %; HEMATOCRIT 37.7 % (37.0-47.0); HEMOGLOBIN 12.5 gm/dL (12.0-15.0); LYMPHOCYTES 22.5 %; MCH 29.6 pg (26.0-34.0); MCHC 33.2 g/dL (28.0-37.0); MCV 89.1 fL (80.0-100.0); MONOCYTES 7.8 %; MPV 9.5 fl. (7.2-11.1); NUCLEATED RBCS 0 /100WBC; PLATELET COUNT* 243 thou/uL (150-400); RBC 4.23 mil/uL (4.20-5.00); WBC 13.5 thou/uL (4.0-11.0)
[2020-02-04 13:11] LABS: ALBUMIN 3.1 g/dL (3.4-5.0); ALKALINE PHOSPHATASE 110 U/L (46-116); AMYLASE 45 U/L (25-115); ANION GAP 8 mmol/L (7-16); BUN 40 mg/dL (7-18); CALCIUM 8.6 mg/dL (8.5-10.1); CHLORIDE 105 mmol/L (98-107); CHOLESTEROL 141 mg/dL (<200); CO2 29 mmol/L (21-32); CREATININE 1.9 mg/dL (0.6-1.3); DIRECT BILIRUBIN 0.1 mg/dL (<0.1-0.3); GLUCOSE 111 mg/dL (70-99); HDL CHOLESTEROL 38 mg/dL (>40); LDL CHOLESTEROL 55 mg/dL (<100); LIPASE 87 U/L (73-393); SGOT 17 U/L (15-37); SGPT 18 U/L (30-65); SODIUM 142 mmol/L (136-145); TC:HDL 3.7 Ratio (Not establshd); TOTAL BILIRUBIN 0.6 mg/dL (<0.1-1.0); TOTAL PROTEIN 7.5 g/dL (6.4-8.2); TRIGLYCERIDE 241 mg/dL (<150); VLDL 48 mg/dL (<40)
[2020-02-04 13:12] LABS: SERUM ASSESSMENT Clear
[2020-02-05 02:07] LABS: GLYCOHEMOGLOBIN (HGB A1C) 13.5 % (4.8-5.6)
== END ==
LOC: M.LAB 12:20
PROVIDERS: ATTEND Registered Nurse Diabetes Educator
DX: R82.90 Unspecified abnormal findings in urine (principal)

== ENCOUNTER → 2020-02-06 | Outpatient (CLI) | payer OTHER, MEDICARE | LOC: M.LAB 14:37 | PROVIDERS: ATTEND Registered Nurse Diabetes Educator | DX: R19.7 Diarrhea, unspecified (principal) ==

== ENCOUNTER → 2020-03-09 | Outpatient (CLI) | payer OTHER ==
--- NOTE | 2020-03-09 10:53 | 2DMMODE ---
[place] [address] 2 D/M-MODE ECHOCARDIOGRAM Name: MOISESMIA ANN Room: [facility]#: [id number] Admission: 03/09/20 Attend Phys: Manuel Francois, Discharge: Date of : 52 Date of Service: 03/09/20 1052 Report #: [id number] THIS REPORT FOR: cc: Tigre Watson MD, David L. MD Blick, David R. MD MERGED WITH [facility] ~ APPROVED REPORT Study performed: 03/09/2020 08:58:45 EXAM: Comprehensive 2D, Doppler, and color-flow Echocardiogram BSA: 2.03 HR: 65 bpm BP: 185/90 mmHg Other Information Study Quality: Good Indications Dyspnea 2D Dimensions IVSd: 12.76 (7-11mm) LVOT Diam: 20.38 (18-24mm) LVDd: 41.73 mm PWd: 10.75 (7-11mm) Ascending Ao: 29.60 (22-36mm) LVDs: 28.12 (25-40mm) Aortic Root: 22.42 mm Volumes Left Atrial Volume (Systole) LA ESV Index: 20.70 mL/m2 Aortic Valve AoV Peak Porfirio.: 1.69 m/s AO Peak Gr.: 11.38 mmHg LVOT Max P.74 mmHg AO Mean Gr.: 6.49 mmHg LVOT Mean P.50 mmHg LVOT Max V: 1.30 m/s AO V2 VTI: 42.18 cm LVOT Mean V: 0.86 m/s PASTOR (VTI): 2.63 cm2 LVOT V1 VTI: 33.96 cm AI Wirt: 2.32 m/s2 AI PHT: 596.49 [place] [address] 2 D/M-MODE ECHOCARDIOGRAM Name: MIA DE LEON Room: [facility]#: [id number] Admission: 03/09/20 Attend Phys: Manuel Francois, Discharge: Date of : 52 Date of Service: 03/09/20 1052 Report #: [id number] E/A Ratio: 1.11 MV Decel. Time: 167.83 ms MV E Max Porfirio.: 0.89 m/s MV PHT: 48.67 ms MVA (PHT): 4.52 cm2 TDI E/Lateral E': 9.89 E/Medial E': 12.71 Medial E' Porfirio.: 0.07 m/s Lateral E' Porfirio.: 0.09 m/s Pulmonary Valve PV Peak Porfirio.: 0.90 m/s PV Peak Gr.: 3.27 mmHg Tricuspid Valve RAP Estimate: 5.00 mmHg TR Peak Gr.: 21.12 mmHg RVSP: 26.12 mmHg PA Pressure: 26.12 mmHg Left Ventricle The left ventricle is normal size. There is normal LV segmental wall motion. There is normal left ventricular wall thickness. Left ventricular systolic function is normal. The left ventricular ejection fraction is within the normal range. LVEF is 55-60%. The left ventricular diastolic function is normal. Right Ventricle The right ventricle is normal size. The right ventricular systolic function is normal. Atria The left atrium size is normal. The right atrium size is normal. Aortic Valve The aortic valve is normal in structure. Mild aortic regurgitation. There is no aortic valvular stenosis. Mitral Valve Mild mitral annular calcification. The mitral valve is normal in structure. Mild mitral regurgitation. No evidence of mitral valve stenosis. Tricuspid Valve The tricuspid valve is normal in structure. Mild [place] [address] 2 D/M-MODE ECHOCARDIOGRAM Name: MIA DE LEON MERLENE Room: [facility]#: [id number] Admission: 03/09/20 Attend Phys: Manuel Francois, Discharge: Date of : 52 Date of Service: 03/09/20 1052 Report #: [id number] Pulmonic Valve Pulmonic valve is not well visualized. There is no pulmonic valvular regurgitation. Great Vessels The aortic root is normal in size. IVC is normal in size and collapses >50% with inspiration. Pericardium There is no pericardial effusion. <Conclusion> LVEF is 55-60%. Mild aortic regurgitation. Mild mitral regurgitation. <ELECTRONICALLY SIGNED> By: Tigre Lambert MD, FACC 03/09/20 1052 51 51 Tigre Lambert MD, FAC /INF
== END ==
LOC: M.CRD 09:00
PROVIDERS: ATTEND Internal Medicine Cardiovascular Disease
DX: I08.3 Combined rheumatic disorders of mitral, aortic and tricuspid valves (principal)

== ENCOUNTER → 2020-04-14 | Outpatient (CLI) | payer OTHER ==
[~2020-04-14] MED LIST changes: +CIPRO250 M2 PO; +FUROSEMIDE 20 M20 MG PO; +KLOR-CON 1010 MEQ PO
[2020-04-14 11:54] LABS: ABSOLUTE BASOPHILS 0.1 thou/uL (0.0-0.2); ABSOLUTE EOSINOPHILS 0.3 thou/uL (0.0-0.7); ABSOLUTE LYMPHOCYTES 2.8 thou/uL (0.8-5.3); ABSOLUTE MONOCYTES 0.9 thou/uL (0.0-1.2); ABSOLUTE NEUTROPHILS 7.9 thou/uL (1.6-8.1); BASOPHILS 0.8 %; EOSINOPHILS 2.2 %; HEMOGLOBIN 11.5 gm/dL (12.0-15.0); LYMPHOCYTES 23.3 %; MCH 30.1 pg (26.0-34.0); MCHC 33.9 g/dL (28.0-37.0); MCV 88.7 fL (80.0-100.0); MONOCYTES 7.6 %; MPV 9.4 fl. (7.2-11.1); NUCLEATED RBCS 0 /100WBC; PLATELET COUNT* 211 thou/uL (150-400); POLYS 66.1 %; RBC 3.84 mil/uL (4.20-5.00); RDW-CV 13.2 % (10.5-14.5); WBC 11.9 thou/uL (4.0-11.0)
[2020-04-14 12:20] LABS: ALBUMIN 3.2 g/dL (3.4-5.0); CALCIUM 8.4 mg/dL (8.5-10.1); CREATININE 1.7 mg/dL (0.6-1.3); DIRECT BILIRUBIN 0.1 mg/dL (<0.1-0.3); POTASSIUM 3.9 mmol/L (3.5-5.1); TOTAL BILIRUBIN 0.9 mg/dL (<0.1-1.0)
== END ==
LOC: M.LAB 10:58
PROVIDERS: ATTEND Registered Nurse Diabetes Educator
DX: N20.0 Calculus of kidney (principal); M47.817 Spondylosis without myelopathy or radiculopathy, lumbosacral region; K42.9 Umbilical hernia without obstruction or gangrene; M54.9 Dorsalgia, unspecified; R82.90 Unspecified abnormal findings in urine; R31.9 Hematuria, unspecified; N30.90 Cystitis, unspecified without hematuria; N30.80 Other cystitis without hematuria; J98.11 Atelectasis; I25.10 Atherosclerotic heart disease of native coronary artery without angina pectoris; Z79.899 Other long term (current) drug therapy

== ENCOUNTER → 2020-04-22 | Day surgery (SDC) | payer OTHER ==
--- NOTE | ~2020-04-22 | PROC ---
[address] [address] PROCEDURE REPORT Name: MIA DE LEON Room: [facility] M.R.#: [id number] Admission: 04/22/20 Attend Phys: Keven Gordon DO Discharge: Date of : 52 Report #: [id number] THIS REPORT FOR: //name// cc: Marilyn Rojas Tammy RNP ~ THIS REPORT FOR: //name// For GI report, please see the Provation report in Perceptive 7 content. By: 0647Medical Records Staff OMEGA /ZENIA
--- NOTE | 2020-04-22 08:26 | EKG ---
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1950 Requested By: Macy Davidson Order Number: [id number] Reading MD: Tigre Lambert Measurements Intervals [place] Rate: 52 P: 31 DC: 182 QRS: -29 QRSD: 107 T: 93 QT: 462 QTc: 430 Interpretive Statements Sinus bradycardia Abnormal R-wave progression, late transition LVH with secondary repolarization abnormality Compared to ECG 05/10/2019 22:15:22 Left ventricular hypertrophy now present Early repolarization now present Electronically Signed On 04-22-2020 8:26:29 CDT by Tigre Lambert [email or web address] <ELECTRONICALLY SIGNED> By: Tigre Lambert MD, [facility] 04/22/20825 5 5 Tigre Lambert MD, [facility] /EPI
--- NOTE | 2020-04-24 12:06 | PATH ---
[place] [address] PATHOLOGY RPT PROCEDURE Name: DONYA LUI Room: [facility] M.R.#: [id number] Admission: 04/22/20 Date of : 52 Discharge: Report #: [id number] Path Case #: [id number] [facility] Accession Number: [id number] . 01 Material submitted: . stomach - ANTRAL BIOPSY FOR H. PYLORI HX OF EROSIVE DUODENITIS . 01 Clinical history: . DYSPHAGIA . 02 Diagnosis: Antral biopsy: - Mild nonspecific chronic antral gastritis, negative for Helicobacter pylori organisms and dysplasia. (BRENDA:nidia; 04/24/2020) . Special stain: H. pylori immuno QMS 04/24/2020 1000 Local . 02 Electronically signed: . Kareem Lewis MD, Pathologist NPI- [id number] . 01 Gross description: . The specimen is received in formalin, labeled "Donya Lui, antral biopsy for H. pylori". Received are two segments of pale hernandez soft tissue measuring 0.3 cm each in maximum dimensions. The specimen is submitted entirely in cassette A1. (CAA; 04/23/2020) QAC/QAC 04/23/2020 1137 Local . 02 Pathologist provided ICD-10: K29.50 . 02 CPT . 725707, [id number] Specimen Comment: A courtesy copy of this report has been sent to [phone], [phone] Specimen Comment: [phone] Specimen Comment: Report sent to / DR SHETH Performed at: [address], [place], [place] [id number] MD Kishore Cintron MD Phone: [phone] Performed at: 02 [facility] [address], [place], [place] [id number] MD Kareem Lewis MD Phone: [phone]
== END | disposition home or self-care (01) ==
LOC: M.SUR 07:02
PROVIDERS: ATTEND Internal Medicine Gastroenterology
DX: R13.14 Dysphagia, pharyngoesophageal phase (principal); K21.0 Gastro-esophageal reflux disease with esophagitis; K26.9 Duodenal ulcer, unspecified as acute or chronic, without hemorrhage or perforation; R12 Heartburn; Z20.828 Contact with and (suspected) exposure to other viral communicable diseases; Z86.73 Personal history of transient ischemic attack (TIA), and cerebral infarction without residual deficits; Z79.899 Other long term (current) drug therapy; Z98.890 Other specified postprocedural states

== ENCOUNTER → 2020-06-17 | Outpatient (CLI) | payer OTHER | LOC: M.LAB 14:50 | PROVIDERS: ATTEND Surgery | DX: Z01.812 Encounter for preprocedural laboratory examination (principal); Z20.828 Contact with and (suspected) exposure to other viral communicable diseases; K44.9 Diaphragmatic hernia without obstruction or gangrene ==

== ENCOUNTER 2020-06-28 04:03 | Emergency (ER) | payer OTHER, MEDICARE ==
[~2020-06-28] VITALS: Ht 157.5 cm; Wt 97.5 kg
[2020-06-28] MEDS ORDERED: ZOFRAN ODT4 MG DISSOLVE (05:13)
[2020-06-28 05:26] VITALS: BP 148/70
== END 2020-06-28 05:27 | disposition home or self-care (01) ==
LOC: M.ERS 04:03
DX: U07.1 COVID-19 (principal); I13.0 Hypertensive heart and chronic kidney disease with heart failure and stage 1 through stage 4 chronic kidney disease, or unspecified chronic kidney disease; E11.22 Type 2 diabetes mellitus with diabetic chronic kidney disease; N18.30 Chronic kidney disease, stage 3 unspecified; I50.30 Unspecified diastolic (congestive) heart failure; Z79.4 Long term (current) use of insulin; Z90.710 Acquired absence of both cervix and uterus; Z96.659 Presence of unspecified artificial knee joint; Z88.5 Allergy status to narcotic agent

== ENCOUNTER 2020-06-29 14:34 | Inpatient (IN) | payer OTHER, MEDICARE ==
[~2020-06-29] VITALS: Ht 157.5 cm; Wt 104.8 kg
--- NOTE | ~2020-06-29 | CON ---
[address] [address] CONSULTATION Name: MIA DE LEON Room: [address] IN M.R.#: [id number] Admission: 06/30/20 Attend Phys: Alana Almanzar Discharge: Date of : 52 Report #: [id number] THIS REPORT FOR: //name// cc: Marilyn Rojas Tammy RNP ~ DATE OF SERVICE: 06/30/2020 HISTORY OF PRESENT ILLNESS: This is a 69-year-old female patient who was evaluated by me for dizziness and ataxia that is how she was admitted, it was going on for a few days. She says that she was extremely dizzy. She had difficulty walking. Her blood sugar was all over the place. Her blood sugar is better now and she says her symptoms have resolved. REVIEW OF SYSTEMS: Positive for some epigastric pain, blurring of vision, diarrhea, headache and she says all those symptoms are gone now. She gives a history of TIA. History is poorly defined. REVIEW OF SYSTEMS: A 14-point review of system was otherwise noncontributory. PAST MEDICAL HISTORY: Negative for stroke or this kind of symptoms. FAMILY HISTORY: Unremarkable. SOCIAL HISTORY: She does not smoke or drink alcohol. PHYSICAL EXAMINATION: NEUROLOGIC: Indicate she is alert, responsive, able to follow simple and complex command. Her speech, concentration, fund of knowledge and memory is unremarkable. Cranial nerve examination 2-12 looks unremarkable. There does not appear to be any nystagmus. There is no meningeal sign. There is no carotid bruit. CARDIAC: Unremarkable. RESPIRATORY: Unremarkable. IMPRESSION: It is possible that her dizziness and ataxia was secondary to fluctuating diabetes, but that is unusual. We will get an MRI to make sure she did not have any TIA or stroke there. We will get it done tomorrow. We will follow up this one after that. I discussed that with the patient in detail. I discussed her option. This is the option she wants to follow. I spent more than 50 minutes of time taking care of this patient today and majority was spent counseling and coordinating. By: 39 48Robson Lockhart MD /nt
[~2020-06-29 14:34] MED LIST changes: +ZOFRAN ODT4 MG DISSOLVE
[2020-06-29 14:46] VITALS: BP 146/77
[2020-06-29 15:33] LABS: ABSOLUTE BASOPHILS 0.1 thou/uL (0.0-0.2); ABSOLUTE EOSINOPHILS 0.2 thou/uL (0.0-0.7); ABSOLUTE LYMPHOCYTES 2.1 thou/uL (0.8-5.3); ABSOLUTE MONOCYTES 0.9 thou/uL (0.0-1.2); ABSOLUTE NEUTROPHILS 8.8 thou/uL (1.6-8.1); BASOPHILS 0.6 %; EOSINOPHILS 1.5 %; HEMOGLOBIN 11.2 gm/dL (12.0-15.0); LYMPHOCYTES 17.2 %; MCH 28.7 pg (26.0-34.0); MCHC 31.9 g/dL (28.0-37.0); MONOCYTES 7.3 %; MPV 9.7 fl. (7.2-11.1); NUCLEATED RBCS 0 /100WBC; PLATELET COUNT* 218 thou/uL (150-400); POLYS 73.4 %; RBC 3.88 mil/uL (4.20-5.00); RDW-CV 12.8 % (10.5-14.5)
[2020-06-29 15:41] LABS: ANION GAP 5 mmol/L (7-16); BUN 28 mg/dL (7-18); CALCIUM 8.5 mg/dL (8.5-10.1); CHLORIDE 97 mmol/L (98-107); CO2 28 mmol/L (21-32); GLUCOSE 491 mg/dL (70-99); POTASSIUM 3.7 mmol/L (3.5-5.1); SODIUM 130 mmol/L (136-145)
[2020-06-29 15:45] LABS: ALBUMIN 2.6 g/dL (3.4-5.0); ALKALINE PHOSPHATASE 114 U/L (46-116); MAGNESIUM 2.2 mg/dL (1.8-2.4); PHOSPHORUS* 2.9 mg/dL (2.5-4.9); SGOT 9 U/L (15-37); SGPT 13 U/L (30-65); TOTAL BILIRUBIN 0.5 mg/dL (<0.1-1.0); TOTAL PROTEIN 7.2 g/dL (6.4-8.2)
[2020-06-29 15:58] LABS: BE 0.4 mmol/L (-2 to +3); PCO2 40.4 mmHg (35.0-45.0); PO2 69.4 mmHg (75.0-100.0)
[2020-06-29 16:37] LABS: AMYLASE 95 U/L (25-115); LIPASE 1048 U/L (73-393)
[2020-06-29 17:00] LABS: URINE BILIRUBIN NEGATIVE (Negative); URINE BLOOD TRACE (Negative); URINE CLARITY CLEAR; URINE COLOR YELLOW; URINE GLUCOSE-RANDOM 3+ (Negative); URINE KETONES NEGATIVE (Negative); URINE LEUKOCYTES-REFLEX NEGATIVE (Negative); URINE NITRITE-REFLEX NEGATIVE (Negative); URINE PROTEIN TRACE (Negative); URINE UROBILINOGEN 0.2 E.U./dl (0.2-1.0)
[2020-06-29 22:03] VITALS: BP 143/85
[2020-06-29 22:45] VITALS: BP 149/57; BP 159/51
[2020-06-30] VITALS: BP 109/36
[2020-06-30] MEDS ORDERED: MACROBID 100 M100 MG PO (03:28)
[2020-06-30] MEDS ORDERED: OMEPRAZOLE40 MG PO (03:28)
[2020-06-30 04:00] VITALS: BP 140/62
[2020-06-30 07:32] LABS: ALBUMIN 2.4 g/dL (3.4-5.0); CALCIUM 8.4 mg/dL (8.5-10.1); CREATININE 1.8 mg/dL (0.6-1.3); POTASSIUM 3.7 mmol/L (3.5-5.1); TOTAL BILIRUBIN 0.5 mg/dL (<0.1-1.0); TOTAL PROTEIN 6.7 g/dL (6.4-8.2)
[2020-06-30 08:00] VITALS: BP 168/58
--- NOTE | 2020-06-30 09:33 | EKG ---
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: TONI : 1950 Requested By: Sarah Weaver Order Number: [id number] MD: Manuel Francois Measurements Intervals [place] Rate: 60 P: 35 VT: 171 QRS: -9 QRSD: 104 T: 57 QT: 426 QTc: 426 Interpretive Statements Sinus rhythm Ventricular trigeminy Minimal ST depression, lateral leads Compared to ECG 04/22/2020 08:06:39 Ventricular premature complex(es) now present ST (T wave) deviation now present Sinus bradycardia no longer present Left ventricular hypertrophy no longer present Early repolarization no longer present Electronically Signed On 06-30-2020 9:32:47 ORACLE DATABASE ANALYST by Manuel Francois [email or web address] <ELECTRONICALLY SIGNED> By: Manuel Francois MD, [facility] 06/30/20 0932 1505 1505 Manuel Francois MD, FAC /EPI
--- NOTE | 2020-06-30 09:36 | EKG ---
[place] [address] ELECTROCARDIOGRAM REPORT Name: MIA DE LEON Room: [address] M.R.#: [id number] Admission: 06/29/20 Attend Phys: Ricardo Campbell Discharge: Date of : 52 Date of Service: 06/29/202047 Report #: [id number] THIS REPORT FOR: //name// [facility] ED Test Date: 2020-06-29 Test Time: 20:48:23 Pat Name: MIA DE LEON Department: Room: [address] Gender: F Regional Clinical Research Associate: [place] : 1950 Requested By: Sarah Weaver Order Number: [id number] Courtney MD: Manuel Francois Measurements Intervals [place] Rate: 57 P: 47 MS: 186 QRS: -16 QRSD: 105 T: 60 QT: 437 QTc: 426 Interpretive Statements Sinus rhythm Ventricular trigeminy Borderline left axis deviation Compared to ECG 06/29/2020 15:05:48 ST (T wave) deviation no longer present Electronically Signed On 06-30-2020 9:36:31 SCANNER OPERATOR by Manuel Francois [email or web address] <ELECTRONICALLY SIGNED> By: Manuel Francois MD, FACC 06/30/20 0936 47 47 Manuel Francois MD, FAC /EPI
[2020-06-30 11:19] VITALS: BP 154/41
[2020-06-30 16:00] VITALS: BP 116/40
[2020-06-30 21:00] VITALS: BP 135/95
[2020-07-01 00:54] VITALS: BP 113/50
[2020-07-01 02:06] LABS: GLYCOHEMOGLOBIN (HGB A1C) 12.2 % (4.8-5.6)
[2020-07-01 04:38] VITALS: BP 114/51
[2020-07-01 05:58] LABS: ABSOLUTE BASOPHILS 0.1 thou/uL (0.0-0.2); ABSOLUTE EOSINOPHILS 0.3 thou/uL (0.0-0.7); ABSOLUTE LYMPHOCYTES 2.2 thou/uL (0.8-5.3); ABSOLUTE MONOCYTES 0.9 thou/uL (0.0-1.2); ABSOLUTE NEUTROPHILS 7.8 thou/uL (1.6-8.1); BASOPHILS 0.6 %; HEMATOCRIT 30.2 % (37.0-47.0); HEMOGLOBIN 9.9 gm/dL (12.0-15.0); LYMPHOCYTES 19.8 %; MCH 29.3 pg (26.0-34.0); MCHC 32.7 g/dL (28.0-37.0); MCV 89.5 fL (80.0-100.0); MONOCYTES 7.6 %; MPV 9.8 fl. (7.2-11.1); NUCLEATED RBCS 0 /100WBC; PLATELET COUNT* 214 thou/uL (150-400); RBC 3.37 mil/uL (4.20-5.00); RDW-CV 12.9 % (10.5-14.5); WBC 11.3 thou/uL (4.0-11.0)
[2020-07-01 06:24] LABS: ALBUMIN 2.2 g/dL (3.4-5.0); CALCIUM 8.4 mg/dL (8.5-10.1); CREATININE 1.7 mg/dL (0.6-1.3); POTASSIUM 3.9 mmol/L (3.5-5.1); TOTAL BILIRUBIN 0.5 mg/dL (<0.1-1.0); TOTAL PROTEIN 6.3 g/dL (6.4-8.2)
[2020-07-01 07:30] VITALS: BP 118/61
[2020-07-01 12:25] VITALS: BP 132/57
[2020-07-01 13:15] LABS: CHOLESTEROL 127 mg/dL (<200); HDL CHOLESTEROL 29 mg/dL (>40); LDL CHOLESTEROL 64 mg/dL (<100); SERUM ASSESSMENT Clear; TC:HDL 4.4 Ratio (Not establshd); TRIGLYCERIDE 171 mg/dL (<150); VLDL 34 mg/dL (<40)
[2020-07-01 16:34] VITALS: BP 135/54
[2020-07-01 20:00] VITALS: BP 134/49
[2020-07-02] VITALS (7 sets, daily range): BP systolic 109–179; BP diastolic 49–92
== END 2020-07-02 18:53 | disposition home or self-care (01) | DRG 438 ==
LOC: M.ERS 14:34 → M.TBA-ER 16:36 → M.2W 22:23
PROVIDERS: Personal Emergency Response Attendant; ADMIT Internal Medicine; ATTEND Internal Medicine
DX: K85.90 Acute pancreatitis without necrosis or infection, unspecified (principal); G93.41 Metabolic encephalopathy; I50.30 Unspecified diastolic (congestive) heart failure; E87.1 Hypo-osmolality and hyponatremia; N17.9 Acute kidney failure, unspecified; E46 Unspecified protein-calorie malnutrition; Z68.41 Body mass index [BMI] 40.0-44.9, adult; I13.0 Hypertensive heart and chronic kidney disease with heart failure and stage 1 through stage 4 chronic kidney disease, or unspecified chronic kidney disease; N18.30 Chronic kidney disease, stage 3 unspecified; E78.5 Hyperlipidemia, unspecified; E11.65 Type 2 diabetes mellitus with hyperglycemia; E66.9 Obesity, unspecified; E11.43 Type 2 diabetes mellitus with diabetic autonomic (poly)neuropathy; K31.84 Gastroparesis; Z20.828 Contact with and (suspected) exposure to other viral communicable diseases; Z90.710 Acquired absence of both cervix and uterus; Z98.42 Cataract extraction status, left eye; Z98.41 Cataract extraction status, right eye; Z88.6 Allergy status to analgesic agent; Z79.82 Long term (current) use of aspirin; Z79.899 Other long term (current) drug therapy; E11.22 Type 2 diabetes mellitus with diabetic chronic kidney disease

== ENCOUNTER 2020-07-30 08:38 | Emergency (ER) | payer OTHER, MEDICARE ==
[~2020-07-30] VITALS: Ht 157.5 cm; Wt 96.2 kg
[~2020-07-30 08:38] MED LIST changes: +MACROBID 100 M100 MG PO
[2020-07-30 09:10] LABS: ABSOLUTE BASOPHILS 0.1 thou/uL (0.0-0.2); ABSOLUTE EOSINOPHILS 0.3 thou/uL (0.0-0.7); ABSOLUTE LYMPHOCYTES 3.2 thou/uL (0.8-5.3); ABSOLUTE NEUTROPHILS 7.4 thou/uL (1.6-8.1); EOSINOPHILS 2.9 %; HEMATOCRIT 37.1 % (37.0-47.0); HEMOGLOBIN 12.1 gm/dL (12.0-15.0); LYMPHOCYTES 26.4 %; MCH 28.4 pg (26.0-34.0); MCHC 32.6 g/dL (28.0-37.0); MCV 86.9 fL (80.0-100.0); MPV 9.1 fl. (7.2-11.1); NUCLEATED RBCS 0 /100WBC; PLATELET COUNT* 246 thou/uL (150-400); POLYS 61.7 %; RBC 4.27 mil/uL (4.20-5.00); RDW-CV 13.4 % (10.5-14.5)
[2020-07-30 09:22] LABS: CALCIUM 8.4 mg/dL (8.5-10.1); CREATININE 1.8 mg/dL (0.6-1.3)
[2020-07-30 09:26] LABS: ALBUMIN 3.1 g/dL (3.4-5.0); TOTAL BILIRUBIN 0.6 mg/dL (<0.1-1.0); TOTAL PROTEIN 7.5 g/dL (6.4-8.2)
[2020-07-30 10:15] LABS: URINE BILIRUBIN NEGATIVE (Negative); URINE BLOOD 1+ (Negative); URINE CLARITY CLEAR; URINE COLOR YELLOW; URINE GLUCOSE-RANDOM 3+ (Negative); URINE KETONES NEGATIVE (Negative); URINE LEUKOCYTES-REFLEX NEGATIVE (Negative); URINE NITRITE-REFLEX NEGATIVE (Negative); URINE PROTEIN 2+ (Negative); URINE UROBILINOGEN 0.2 E.U./dl (0.2-1.0)
[2020-07-30 10:26] LABS: SQUAMOUS >10 Many /LPF (0-3); URINE RBC 0-2 Rare /HPF (0-2); URINE WBC-REFLEX None Seen /HPF (0-5)
[2020-07-30 10:27] LABS: CASTS None Seen /LPF (None Seen); MUCUS None Seen strn/LPF (None Seen)
[2020-07-30 10:28] LABS: CRYSTALS None Seen /LPF (None Seen)
[2020-07-30 11:13] VITALS: BP 170/65
== END 2020-07-30 11:14 | disposition home or self-care (01) ==
LOC: M.ERS 08:38
PROVIDERS: Emergency Medicine
DX: K46.9 Unspecified abdominal hernia without obstruction or gangrene (principal); E78.5 Hyperlipidemia, unspecified; I13.0 Hypertensive heart and chronic kidney disease with heart failure and stage 1 through stage 4 chronic kidney disease, or unspecified chronic kidney disease; E11.22 Type 2 diabetes mellitus with diabetic chronic kidney disease; N18.30 Chronic kidney disease, stage 3 unspecified; I50.32 Chronic diastolic (congestive) heart failure; E11.43 Type 2 diabetes mellitus with diabetic autonomic (poly)neuropathy; K31.84 Gastroparesis; Z79.4 Long term (current) use of insulin; Z90.710 Acquired absence of both cervix and uterus; Z88.5 Allergy status to narcotic agent; Z96.659 Presence of unspecified artificial knee joint

== ENCOUNTER → 2020-08-04 | Outpatient (CLI) | payer OTHER, MEDICARE | LOC: M.MRI 08:14 | PROVIDERS: ATTEND Internal Medicine Gastroenterology | DX: K42.9 Umbilical hernia without obstruction or gangrene (principal); K86.9 Disease of pancreas, unspecified ==

== ENCOUNTER → 2020-08-31 | Outpatient (CLI) | payer OTHER, MEDICARE ==
[~2020-08-31] MED LIST changes: +FUROSEMIDE 40 M40 MG PO
== END ==
LOC: M.LAB 13:43
PROVIDERS: ATTEND Surgery
DX: Z01.812 Encounter for preprocedural laboratory examination (principal); K43.2 Incisional hernia without obstruction or gangrene; Z20.828 Contact with and (suspected) exposure to other viral communicable diseases

== ENCOUNTER → 2020-09-04 | Day surgery (SDC) | payer OTHER ==
[~2020-09-04] MED LIST changes: +ROXICODONE5 M2 PO
--- NOTE | ~2020-09-04 | PROC ---
[address] [address] PROCEDURE REPORT Name: MIA DE LEON Room: [facility] M.R.#: [id number] Admission: 09/04/20 Attend Phys: Kyle Mills DO Discharge: Date of : 52 Report #: [id number] THIS REPORT FOR: cc: Marilyn Rojas Tammy RNP ~ [facility],Medical Records Staff For GI report, please see the Provation report in Perceptive 7 content. By: 1302Medical Records Staff HAILEY /ZENIA
[2020-09-04 06:53] LABS: HEMATOCRIT 36.4 % (37.0-47.0); HEMOGLOBIN 12.1 gm/dL (12.0-15.0); MCH 29.5 pg (26.0-34.0); MCHC 33.2 g/dL (28.0-37.0); MCV 88.9 fL (80.0-100.0); MPV 9.1 fl. (7.2-11.1); RBC 4.1 mil/uL (4.20-5.00); RDW-CV 14.1 % (10.5-14.5); WBC 10.1 thou/uL (4.0-11.0)
[2020-09-04 07:03] LABS: CALCIUM 9.5 mg/dL (8.5-10.1); CREATININE 1.9 mg/dL (0.6-1.3); POTASSIUM 4.4 mmol/L (3.5-5.1)
--- NOTE | 2020-09-15 11:20 | OP ---
[address] [address] OPERATIVE REPORT Name: MIA DE LEON Room: [facility] M..#: [id number] Admission: 09/04/20 Attend Phys: Kyle Mills DO Discharge: Date of : 52 Report #: [id number] THIS REPORT FOR: cc: Marilyn Rojas Tammy RNP ~ Kyle Mills DO DATE OF SERVICE: 09/04/2020 PREOPERATIVE DIAGNOSIS: Ventral hernia. POSTOPERATIVE DIAGNOSIS: Ventral hernia. PROCEDURE: Da Nurys robotic-assisted laparoscopic ventral hernia repair with 11.[address] mesh. SURGEON: Kyle Mills DO DUBBING MACHINE OPERATOR: Dr. Regan Cool. ANESTHESIA: General endotracheal and TAP blocks. ESTIMATED BLOOD LOSS: Less than 20 mL. COMPLICATIONS: None. DESCRIPTION OF PROCEDURE: After obtaining proper consents and discussing risks and complications with the patient, she was taken to the operating room, laid in the supine position, administered general endotracheal anesthetic. She also then underwent TAP blocks. Once the TAP blocks were complete, she was prepped and draped in the usual sterile fashion. A timeout was performed. We confirmed the appropriate patient and procedure. Preoperative antibiotics were given. SCDs were placed. Medina catheter had been placed also. Once this was all complete, we then made a small right subcostal incision. This was carried down through the skin into the subcutaneous tissue using electrocautery for hemostasis. Once within the subcutaneous tissues, I then used a 12 mm Visiport to enter the abdominal cavity. Once the abdominal cavity was entered, insufflation was begun. Once insufflation was complete, full visual inspection of the anterior abdominal organs was performed. This revealed some adhesions along the midline and we could easily visualize a small hernia at this time, but could not completely visualized because of the adhesions. We then placed two more 8.5 mm da Nurys ports on the right side. Once this was done, we then docked the da Nurys robot and then I went on console after inserting bipolar fenestrated graspers and monopolar scissors. Once on console, I was able to take down the adhesions along the midline, which then revealed the hernia to be slightly bigger than what we had expected. I had my tmd teacher [place] [address] OPERATIVE REPORT Name: MOISESMIA MERLENE Room: [facility]..#: [id number] Admission: 09/04/20 Attend Phys: Kyle Mills DO Discharge: Date of : 52 Report #: [id number] into the abdominal cavity and we measured the hernia defect, which measured approximately 4.5 x 4.5 cm in diameter. Once this was removed, I then decreased the abdominal pressure and closed the hernia defect including the hernia sac into the closure using an 0 absorbable V-Loc suture, 180 day. Once the defect was closed, I then inserted an 11.[address] mesh along with the echo positioning system. This was then brought up through the abdominal wall. The positioning system was inflated. I then sutured the mesh in place using running 2-0 absorbable V-Loc, 90-day suture. A total of 3 sutures were used to go around the entire mesh and once this was complete, I then removed the positioning system. We removed all of the needles from the peritoneal cavity. We checked, everything for hemostasis and assured no injuries to the other organs. My assistance then removed all of the instruments while I was on console visualizing. I then rescrubbed and went back to the patient's bedside where we undocked the da Nurys robot. I then removed the 12 mm port from the right upper quadrant and used a PMI closure device and a 0 Vicryl suture to close the fascia in this area. We then removed the remaining 2 trocars. All the skin incisions were closed using 4-0 Monocryl subcuticular stitches. Mastisol, Steri-Strips, sterile OpSite and pressure dressings were placed. The patient was awakened in the operating room and transported to recovery room in stable condition. <ELECTRONICALLY SIGNED> By: Kyle Mills DO 09/15/20 1120 1607 1706Aflori Mills DO /nt
== END | disposition home or self-care (01) ==
LOC: M.SUR 05:33
PROVIDERS: ATTEND Surgery
DX: K43.9 Ventral hernia without obstruction or gangrene (principal); I10 Essential (primary) hypertension; E11.9 Type 2 diabetes mellitus without complications; Z98.890 Other specified postprocedural states; Z79.899 Other long term (current) drug therapy; Z90.710 Acquired absence of both cervix and uterus; Z96.651 Presence of right artificial knee joint; Z98.49 Cataract extraction status, unspecified eye; Z88.8 Allergy status to other drugs, medicaments and biological substances

== ENCOUNTER → 2020-11-05 | Outpatient (CLI) | payer OTHER ==
[2020-11-05 13:27] LABS: ABSOLUTE BASOPHILS 0.1 thou/uL (0.0-0.2); ABSOLUTE EOSINOPHILS 0.2 thou/uL (0.0-0.7); ABSOLUTE LYMPHOCYTES 2.6 thou/uL (0.8-5.3); ABSOLUTE MONOCYTES 0.7 thou/uL (0.0-1.2); BASOPHILS 1.1 %; EOSINOPHILS 1.8 %; HEMATOCRIT 37.4 % (37.0-47.0); HEMOGLOBIN 12.1 gm/dL (12.0-15.0); LYMPHOCYTES 24.5 %; MCH 28.8 pg (26.0-34.0); MCHC 32.4 g/dL (28.0-37.0); MONOCYTES 6.8 %; MPV 8.9 fl. (7.2-11.1); NUCLEATED RBCS 0 /100WBC; PLATELET COUNT* 230 thou/uL (150-400); POLYS 65.8 %; RDW-CV 14.1 % (10.5-14.5); WBC 10.7 thou/uL (4.0-11.0)
[2020-11-05 13:50] LABS: URINE BILIRUBIN NEGATIVE (Negative); URINE BLOOD 1+ (Negative); URINE CLARITY CLEAR; URINE COLOR YELLOW; URINE GLUCOSE-RANDOM 3+ (Negative); URINE KETONES NEGATIVE (Negative); URINE LEUKOCYTES-REFLEX NEGATIVE (Negative); URINE NITRITE-REFLEX NEGATIVE (Negative); URINE PROTEIN 2+ (Negative); URINE UROBILINOGEN 0.2 E.U./dl (0.2-1.0)
[2020-11-05 14:02] LABS: BACTERIA-REFLEX 1-9 Few /HPF (None Seen); CASTS None Seen /LPF (None Seen); CRYSTALS None Seen /LPF (None Seen); MUCUS 0-3 Light strn/LPF (None Seen); SQUAMOUS 4-10 Moderate /LPF (0-3); URINE RBC 3-10 Few /HPF (0-2); URINE WBC-REFLEX 0-5 Rare /HPF (0-5)
[2020-11-05 14:11] LABS: ANION GAP 11 mmol/L (7-16); BUN 32 mg/dL (7-18); CHLORIDE 106 mmol/L (98-107); CHOLESTEROL 227 mg/dL (<200); CO2 23 mmol/L (21-32); CREATININE 1.8 mg/dL (0.6-1.3); GLUCOSE 316 mg/dL (70-99); HDL CHOLESTEROL 41 mg/dL (>40); LDL CHOLESTEROL 118 mg/dL (<100); SODIUM 140 mmol/L (136-145); TC:HDL 5.5 Ratio (Not establshd); TRIGLYCERIDE 343 mg/dL (<150); VLDL 69 mg/dL (<40)
[2020-11-05 14:12] LABS: SERUM ASSESSMENT Clear
[2020-11-05 21:00] LABS: ALBUMIN 3.1 g/dL (3.4-5.0); DIRECT BILIRUBIN 0.1 mg/dL (<0.1-0.3); TOTAL BILIRUBIN 0.4 mg/dL (<0.1-1.0); TOTAL PROTEIN 6.2 g/dL (6.4-8.2)
[2020-11-06 02:06] LABS: GLYCOHEMOGLOBIN (HGB A1C) 13.4 % (4.8-5.6)
[2020-11-06 06:07] LABS: HEPATITIS B SURFACE AG Negative (Negative)
== END ==
LOC: M.LAB 13:03
PROVIDERS: ATTEND Registered Nurse Diabetes Educator
DX: E11.29 Type 2 diabetes mellitus with other diabetic kidney complication (principal); R80.9 Proteinuria, unspecified; E55.9 Vitamin D deficiency, unspecified; E78.2 Mixed hyperlipidemia; Z79.4 Long term (current) use of insulin; Z79.899 Other long term (current) drug therapy

== ENCOUNTER 2021-01-23 13:04 | Emergency (ER) | payer OTHER ==
[~2021-01-23] VITALS: Ht 157.5 cm; Wt 95.3 kg
[2021-01-23 13:35] LABS: ABSOLUTE BASOPHILS 0.1 thou/uL (0.0-0.2); ABSOLUTE EOSINOPHILS 0.4 thou/uL (0.0-0.7); ABSOLUTE LYMPHOCYTES 3.4 thou/uL (0.8-5.3); ABSOLUTE MONOCYTES 0.8 thou/uL (0.0-1.2); BASOPHILS 1.1 %; EOSINOPHILS 3.3 %; HEMATOCRIT 39.7 % (37.0-47.0); HEMOGLOBIN 13.4 gm/dL (12.0-15.0); LYMPHOCYTES 28.8 %; MCHC 33.7 g/dL (28.0-37.0); MONOCYTES 7.2 %; MPV 9.5 fl. (7.2-11.1); NUCLEATED RBCS 0 /100WBC; PLATELET COUNT* 250 thou/uL (150-400); POLYS 59.6 %; RBC 4.46 mil/uL (4.20-5.00); RDW-CV 12.7 % (10.5-14.5); WBC 11.7 thou/uL (4.0-11.0)
[2021-01-23 13:47] LABS: CALCIUM 8.8 mg/dL (8.5-10.1); CREATININE 1.8 mg/dL (0.6-1.3); POTASSIUM 3.8 mmol/L (3.5-5.1)
[2021-01-23 13:52] LABS: ALBUMIN 3.6 g/dL (3.4-5.0); TOTAL BILIRUBIN 0.8 mg/dL (<0.1-1.0); TOTAL PROTEIN 7.8 g/dL (6.4-8.2)
[2021-01-23 14:23] LABS: URINE BILIRUBIN NEGATIVE (Negative); URINE BLOOD 1+ (Negative); URINE CLARITY CLEAR; URINE COLOR YELLOW; URINE GLUCOSE-RANDOM 3+ (Negative); URINE KETONES NEGATIVE (Negative); URINE LEUKOCYTES-REFLEX NEGATIVE (Negative); URINE NITRITE-REFLEX NEGATIVE (Negative); URINE PROTEIN 1+ (Negative); URINE UROBILINOGEN 0.2 E.U./dl (0.2-1.0)
[2021-01-23 14:30] LABS: AMP/METHAMP Negative (Negative); BARBITURATES Negative (Negative); BENZODIAZEPINES Negative (Negative); COCAINE Negative (Negative); METHADONE Negative (Negative); OPIATES Negative (Negative); PCP Negative (Negative); THC Negative (Negative)
[2021-01-23 14:32] LABS: BACTERIA-REFLEX 1-9 Few /HPF (None Seen); SQUAMOUS 0-3 Few /LPF (0-3); URINE RBC 3-10 Few /HPF (0-2); URINE WBC-REFLEX 0-5 Rare /HPF (0-5)
[2021-01-23 14:33] LABS: CASTS None Seen /LPF (None Seen); CRYSTALS None Seen /LPF (None Seen); MUCUS 0-3 Light strn/LPF (None Seen)
[2021-01-23 14:50] VITALS: BP 139/55
--- NOTE | 2021-01-24 11:05 | EKG ---
[place] [address] ELECTROCARDIOGRAM REPORT Name: IMA DE LEON Room: [facility]#: [id number] Admission: 01/23/21 Attend Phys: Discharge: 01/23/21 Date of : 52 Date of Service: 01/23/21 1329 Report #: [id number] THIS REPORT FOR: //name// [facility] ED Test Date: 2021-01-23 Test Time: 13:29:28 Pat Name: MIA DE LEON Department: Room: Gender: [facility] Consultant: : 1950 Requested By: Medhat Staples Order Number: [id number] MD: Tigre Lambert Measurements Intervals [place] Rate: 61 P: 40 [place]: 190 QRS: -27 QRSD: 103 T: 74 QT: 454 QTc: 458 Interpretive Statements Sinus rhythm Abnormal R-wave progression, late transition Inferior infarct, old Compared to ECG 06/29/2020 20:48:23 Ventricular premature complex(es) no longer present Electronically Signed On 01-24-2021 11:05:27 CDT by Tigre Lambert [email or web address] <ELECTRONICALLY SIGNED> By: Tigre Lambert MD, [facility] 01/24/21 1105 1329 1329 Tigre Lambert MD, [facility] /EPI
== END 2021-01-23 14:50 | disposition home or self-care (01) ==
LOC: M.ERS 13:04
PROVIDERS: Physician Assistant
DX: E11.65 Type 2 diabetes mellitus with hyperglycemia (principal); E11.22 Type 2 diabetes mellitus with diabetic chronic kidney disease; I13.0 Hypertensive heart and chronic kidney disease with heart failure and stage 1 through stage 4 chronic kidney disease, or unspecified chronic kidney disease; N18.30 Chronic kidney disease, stage 3 unspecified; I50.32 Chronic diastolic (congestive) heart failure; E78.5 Hyperlipidemia, unspecified; Z90.710 Acquired absence of both cervix and uterus; Z96.659 Presence of unspecified artificial knee joint; Z79.4 Long term (current) use of insulin; Z79.899 Other long term (current) drug therapy

== ENCOUNTER 2021-04-07 10:53 | Emergency (ER) | payer OTHER ==
[~2021-04-07] VITALS: Ht 157.5 cm; Wt 96.6 kg
[2021-04-07 11:02] VITALS: BP 151/65
== END 2021-04-07 11:33 | disposition left against medical advice (07) ==
LOC: M.ERS 10:53
DX: Z53.21 Procedure and treatment not carried out due to patient leaving prior to being seen by health care provider (principal)

== ENCOUNTER → 2021-05-26 | Outpatient (CLI) | payer OTHER ==
--- NOTE | 2021-06-03 11:36 | EXE ---
[place] [address] STRESS ECHOCARDIOGRAM Name: MOISESMIA MERLENE Room: [facility]#: [id number] Admission: 05/26/21 Attend Phys: Manuel Francois, Discharge: Date of : 52 Date of Service: 05/26/21 1617 Report #: [id number] THIS REPORT FOR: cc: Gris García MD, Katrina MD Blick, David R. MD [facility] ~ APPROVED REPORT Study performed: 05/26/2021 15:21:55 Exam: Stress Echocardiogram Indication: Dyspnea Patient Location: Out-Patient Stress Nurse: Angelica Whitfield RN Supervising Physician: Tigre Lambert MD Ht: 5 ft 4 in HR: 71 bpm BP: 154/78 mmHg Medical History Medical History: CAD Cardiac Risk Factors: Age, , Hyperlipidemia, HTN, DM Procedure The patient underwent an Exercise Stress Test using the Lyndon Protocol. Blood pressure, heart rate, and EKG were monitored. An Echocardiogram was performed by monogram technician in four stages in quad fashion. At peak stress, four selected images were obtained and placed side by side with resting images for comparison. Stress Test Details Stress Test: Exercise stress testing was performed using a Lyndon protocol. HR Resting HR: 71 bpm Max Heart Rate (APMHR): 151 bpm Max HR Achieved: 110 bpm Target HR (85% APMHR): 128 bpm % of APMHR: 72 Recovery HR: 76 bpm HR response to stress: Normal HR response to stress BP Resting BP: 154/78 mmHg Max BP: 187/76 mmHg Recovery BP: 180/83 [place] [address] STRESS ECHOCARDIOGRAM Name: MIA DE LEON Room: [facility]#: [id number] Admission: 05/26/21 Attend Phys: Manuel Francois, Discharge: Date of : 52 Date of Service: 05/26/21 1617 Report #: [id number] BP response to stress: Normal blood pressure response to stress. ECG Resting ECG: Sinus Rhythm Stress ECG: Sinus Rhythm, nonspecific ST-T abnormalities ST Change: Upsloping ST depression Maximum ST Deviation: 0.5 mm Arrhythmia: VPC's Recovery ECG: Sinus Rhythm, nonspecific ST-T abnormalities Recovery ST Change: Upsloping ST depression Recovery ST Deviation: 0.5 mm Recovery Arrhythmia: None Clinical Reason for Termination: Maximal effort Exercise duration: 3 min 58 sec Highest Stage Achieved: Stage 2: 2.5 mph at 12% grade. Exercise capacity: 4.64 METs Pre-Stress Echo The resting Echocardiogram showed normal left ventricular contractility with an estimated Ejection Fraction of about 60-65%. Post-Stress Echo The stress Echocardiogram showed normal left ventricular contractility with an estimated Ejection Fraction of about 65-70%. Compared to rest, there were no stress-induced wall motion abnormalities. Conclusion Clinical Response: Non-ischemic Exercise Capacity: Below Average Stress ECG Response: Indeterminant Stress Echo Images: Non-ischemic Indeterminate echo stress test for predicting future cardiac events secondary to inability to achieve target heart rate. Other Information Study Quality: Good <Conclusion> [place] [address] STRESS ECHOCARDIOGRAM Name: MOISESMIA MERLENE Room: [facility]#: [id number] Admission: 05/26/21 Attend Phys: Manuel Francois, Discharge: Date of : 52 Date of Service: 05/26/211616 Report #: [id number] Indeterminate echo stress test for predicting future cardiac events secondary to inability to achieve target heart rate. <ELECTRONICALLY SIGNED> By: Tigre Lambert MD, FACC 05/26/211616 16 16 Tigre Lambert MD, FACC /INF
== END ==
LOC: M.CRD 14:13
PROVIDERS: ATTEND Internal Medicine Cardiovascular Disease
DX: I11.0 Hypertensive heart disease with heart failure (principal); I50.32 Chronic diastolic (congestive) heart failure; I25.10 Atherosclerotic heart disease of native coronary artery without angina pectoris; R60.0 Localized edema; R06.02 Shortness of breath; E78.5 Hyperlipidemia, unspecified

== ENCOUNTER → 2021-09-24 | Outpatient (CLI) | payer OTHER ==
[2021-09-24 09:49] LABS: ABSOLUTE BASOPHILS 0.1 thou/uL (0.0-0.2); ABSOLUTE EOSINOPHILS 0.4 thou/uL (0.0-0.7); ABSOLUTE MONOCYTES 0.9 thou/uL (0.0-1.2); ABSOLUTE NEUTROPHILS 6.3 thou/uL (1.6-8.1); EOSINOPHILS 3.7 %; HEMATOCRIT 34.6 % (37.0-47.0); HEMOGLOBIN 11.4 gm/dL (12.0-15.0); LYMPHOCYTES 28.1 %; MCH 29.1 pg (26.0-34.0); MCHC 32.8 g/dL (28.0-37.0); MCV 88.7 fL (80.0-100.0); MONOCYTES 8.3 %; MPV 8.8 fl. (7.2-11.1); NUCLEATED RBCS 0 /100WBC; PLATELET COUNT* 232 thou/uL (150-400); POLYS 58.9 %; RDW-CV 13.1 % (10.5-14.5); WBC 10.7 thou/uL (4.0-11.0)
[2021-09-24 10:57] LABS: ALBUMIN 3.5 g/dL (3.4-5.0); CALCIUM 9.1 mg/dL (8.5-10.1); POTASSIUM 4.6 mmol/L (3.5-5.1); TOTAL BILIRUBIN 0.4 mg/dL (<0.1-1.0); TOTAL PROTEIN 7.5 g/dL (6.4-8.2)
== END ==
LOC: M.LAB 09:30
PROVIDERS: ATTEND Nurse Practitioner
DX: I50.32 Chronic diastolic (congestive) heart failure (principal); R06.00 Dyspnea, unspecified

== ENCOUNTER → 2021-09-27 | Outpatient (CLI) | payer OTHER ==
[2021-09-27 11:31] LABS: CHOLESTEROL 184 mg/dL (<200); HDL CHOLESTEROL 37 mg/dL (>40); LDL CHOLESTEROL 98 mg/dL (<100); TRIGLYCERIDE 246 mg/dL (<150); VLDL 49 mg/dL (<40)
[2021-09-27 11:32] LABS: SERUM ASSESSMENT Clear
== END ==
LOC: M.LAB 09:32
PROVIDERS: ATTEND Nurse Practitioner
DX: E78.2 Mixed hyperlipidemia (principal)

== ENCOUNTER → 2021-10-05 | Outpatient (CLI) | payer OTHER ==
--- NOTE | 2021-10-05 11:07 | 2DMMODE ---
[place] [address] 2 D/M-MODE ECHOCARDIOGRAM Name: MIA DE LEON Room: [facility]#: [id number] Admission: 10/05/21 Attend Phys: Julissa Linder, Discharge: Date of : 52 Date of Service: 10/05/21 1106 Report #: [id number] THIS REPORT FOR: cc: Gris García MD, Katrina MD Holkins, John M. MD [facility] ~ APPROVED REPORT Study performed: 10/05/2021 10:45:55 EXAM: Comprehensive 2D, Doppler, and color-flow Echocardiogram Patient Location: Out-Patient BSA: 1.98 HR: 50 bpm BP: 147/67 mmHg Other Information Study Quality: Good Indications Chronic diastolic heart failure 2D Dimensions IVSd: 11.21 (7-11mm) LVOT Diam: 20.06 (18-24mm) LVDd: 43.34 mm PWd: 11.21 (7-11mm) Ascending Ao: 28.99 (22-36mm) LVDs: 25.98 (25-40mm) Aortic Root: 29.99 mm Volumes Left Atrial Volume (Systole) LA ESV Index: 17.00 mL/m2 Aortic Valve AoV Peak Porfirio.: 1.80 m/s AO Peak Gr.: 13.00 mmHg LVOT Max P.46 mmHg AO Mean Gr.: 7.21 mmHg LVOT Mean P.17 mmHg LVOT Max V: 1.37 m/s AO V2 VTI: 41.98 cm LVOT Mean V: 0.96 m/s PASTOR (VTI): 2.77 cm2 LVOT V1 VTI: 36.86 cm AI [place]: 2.47 m/s2 AI PHT: 517.45 [place] [address] 2 D/M-MODE ECHOCARDIOGRAM Name: MIA DE LEON Room: [facility]#: [id number] Admission: 10/05/21 Attend Phys: Julissa Linder, Discharge: Date of : 52 Date of Service: 10/05/21 1106 Report #: [id number] Mitral Valve E/A Ratio: 1.24 MV Decel. Time: 198.91 ms MV E Max Porfirio.: 1.33 m/s MV PHT: 57.68 ms MVA (PHT): 3.81 cm2 TDI E/Lateral E': 11.08 E/Medial E': 8.87 Medial E' Porfirio.: 0.15 m/s Lateral E' Porfirio.: 0.12 m/s Pulmonary Valve PV Peak Porfirio.: 1.03 m/s PV Peak Gr.: 4.27 mmHg Tricuspid Valve RAP Estimate: 5.00 mmHg TR Peak Gr.: 31.93 mmHg RVSP: 36.93 mmHg PA Pressure: 36.93 mmHg Left Ventricle The left ventricle is normal size. There is normal LV segmental wall motion. There is normal left ventricular wall thickness. Left ventricular systolic function is normal. The left ventricular ejection fraction is within the normal range. LVEF is 55-60%. The left ventricular diastolic function is normal. Right Ventricle The right ventricle is normal size. The right ventricular systolic function is normal. Atria The left atrium size is normal. The right atrium size is normal. Aortic Valve Mild aortic valve sclerosis. Mild aortic regurgitation. There is no aortic valvular stenosis. Mitral Valve Mild mitral annular calcification. Mild mitral regurgitation. No evidence of mitral valve stenosis. Tricuspid Valve The tricuspid valve is normal in structure. Mild [place] [address] 2 D/M-MODE ECHOCARDIOGRAM Name: MOISESMIA MERLENE Room: [facility]#: [id number] Admission: 10/05/21 Attend Phys: Julissa Linder, Discharge: Date of : 52 Date of Service: 10/05/21 1106 Report #: [id number] Pulmonic Valve The pulmonary valve is normal in structure. There is no pulmonic valvular regurgitation. Great Vessels The aortic root is normal in size. IVC is normal in size and collapses >50% with inspiration. Pericardium There is no pericardial effusion. <Conclusion> The left ventricle is normal size. There is normal left ventricular wall thickness. Left ventricular systolic function is normal. The left ventricular ejection fraction is within the normal range. LVEF is 55-60%. The left ventricular diastolic function is normal. The right ventricle is normal size. The left atrium size is normal. Mild aortic valve sclerosis. Mild aortic regurgitation. There is no aortic valvular stenosis. Mild mitral annular calcification. Mild mitral regurgitation. The tricuspid valve is normal in structure. Mild tricuspid regurgitation. IVC is normal in size and collapses >50% with inspiration. There is no pericardial effusion. There is normal LV segmental wall motion. <ELECTRONICALLY SIGNED> By: Kel Villarreal MD, FACC 10/05/21 1106 1106 1106 Kel Villarreal MD, FACC /INF
== END ==
LOC: M.CRD 09:29
PROVIDERS: ATTEND Nurse Practitioner
DX: I08.3 Combined rheumatic disorders of mitral, aortic and tricuspid valves (principal); I50.32 Chronic diastolic (congestive) heart failure